=== PATIENT | female | born 1940 | race African-American/Black ===

== ENCOUNTER 2019-12-21 04:10 | Inpatient (IN) | payer OTHER ==
[~2019-12-21] VITALS: Ht 167.6 cm; Wt 121.1 kg
[2019-12-21] VITALS (32 sets, daily range): BP systolic 74–140; BP diastolic 43–80
[~2019-12-21 04:10] MED LIST: ACETAMINOPHEN325 M1 PO; ALPHAGAN P10 ML; AMLODIPINE BESY10 MG PO; ASPIRIN EC81 M1 PO; CARVEDILOL6.25 MG PO; CEPASTAT CHERR18 TA2 PO; COSOPT EYE DROPS5 ML OPHTHALMIC; DIOVAN 80 MG TA80 M1 PO; DIOVAN320 MG PO; FML 0.1% 10ML10 M1 OP; HYDRALAZINE 2525 M1 PO; JANUMET 50-5001 EACH PO; JANUMET XR 50-1 EACH PO; JANUVIA100 MG PO; LEVAQUIN 500 M500 M2 PO; LOTEMAX5 ML; MOM PO; PANTOPRAZOLE SO40 M1 PO; PREDNISONE 10 M10 M1 PO; ZOCOR 20 MG TAB20 M1 PO
[2019-12-21 05:17] LABS: HEMATOCRIT 30.8 % (37.0-47.0); HEMOGLOBIN 9.5 gm/dL (12.0-15.0); MCH 33.3 pg (26.0-34.0); MCHC 30.9 g/dL (28.0-37.0); MCV 107.7 fL (80.0-100.0); PLATELET COUNT 145 thou/uL (150-400); RBC 2.86 mil/uL (4.20-5.00); RDW 14.9 % (10.5-14.5); WBC 23.5 thou/uL (4.0-11.0)
[2019-12-21 05:18] LABS: CALCIUM 8.8 mg/dL (8.5-10.1); CREATININE 2.2 mg/dL (0.6-1.0); POTASSIUM 4.7 mmol/L (3.5-5.1)
[2019-12-21 05:26] LABS: ALBUMIN 3.4 g/dL (3.4-5.0); DIRECT BILIRUBIN 0.3 mg/dL (<0.1-0.2); TOTAL BILIRUBIN 0.8 mg/dL (0.2-1.0); TOTAL PROTEIN 6.5 g/dL (6.4-8.2)
[2019-12-21 05:26] LABS: URINE BILIRUBIN NEGATIVE (Negative); URINE BLOOD NEGATIVE (Negative); URINE CLARITY CLEAR; URINE COLOR YELLOW; URINE GLUCOSE-RANDOM* 1+ (Negative); URINE KETONES NEGATIVE (Negative); URINE LEUKOCYTES-REFLEX NEGATIVE (Negative); URINE NITRITE-REFLEX NEGATIVE (Negative); URINE PROTEIN (DIPSTICK) NEGATIVE (Negative); URINE SPECIFIC GRAVITY 1.015 (1.005-1.035); URINE UROBILINOGEN 0.2 E.U./dl (0.2-1.0)
[2019-12-21] MEDS ORDERED: DOXYCYCLINE 10100 MG PO (06:11)
[2019-12-21 06:35] LABS: ABSOLUTE NEUTROPHILS 22.8 thou/uL (1.4-8.2)
[2019-12-21 06:36] LABS: ANISOCYTOSIS 1+; PLATELET ESTIMATE DECREASED; POIKILOCYTOSIS 1+
[2019-12-21 08:18] LABS: CHOLESTEROL 136 mg/dL (<200); HDL CHOLESTEROL 29 mg/dL (>40); LDL CHOLESTEROL 82 mg/dL (<100); TC:HDL 4.7 Ratio (Not establshd); TRIGLYCERIDE 125 mg/dL (<150); VLDL 25 mg/dL (<40)
[2019-12-21 08:20] LABS: SERUM ASSESSMENT Clear
--- NOTE | 2019-12-21 11:22 | NUR ---
PATIENT ADMITTED 1025 FROM ER TO ICU. PATIENT FOUND BY FAMILY MEMBER EARLIER THIS MORNING ON THE FLOOR. PATIENT TAKE TO ER FOR EVALUATION. PATIENT MONITORED IN ED NO MEDICATIONS GIVEN. PATIENT SENT TO ICU FOR LOW BP AND INCRASED OXYGEN DEMANDS. PATIENT COVID RULE OUT. PATIENT COMES TO FLOOR 3L NC.
--- NOTE | 2019-12-21 12:46 | NUR ---
VACULAR ACCESS CONSULTED FOR PICC LINE. PT IS UNABLE TO LAY FLAT. PT'S LABS,MEDS,HX,ORDER AND CONSENT VERIFIED. DISCUSSED BENEFITS AND RISK OF PICC WITH PT, VERBALIZED UNDERSTANDING. PT GAVE VERBAL CONSENT FOR PICC UNABLE TO SIGN DUE TO DYSPNEA. HOB 30 DEGREES FOR PICC PLACEMENT. 5FR TL POWER PICC TRIMMED TO 45CM INSERTED TO 1CM EXTERNAL. STAT CXR ORDERED. PT TOLERATED WELL.
[2019-12-21 13:45] LABS: % SATURATION 4 % (20-39); IRON 10 ug/dL (50-170); TIBC 228 ug/dL (250-450)
--- NOTE | 2019-12-21 14:01 | NUR ---
PT'S DTR MADAI XIONG CALLED IN,UPDATED.EXPLAINED NO VISITING POLICY FOR CO VID & R/O COVID PT'S. SHE STATED SHE UNDERSTOOD.--VW
[2019-12-21] MEDS ORDERED: ALLOPURINOL 10100 M3 PO (14:04)
[2019-12-21] MEDS ORDERED: ELIQUIS5 MG PO (14:05)
[2019-12-21] MEDS ORDERED: [UNRECOGNIZED DRUG - OTHER] OPHTHALMIC (14:05)
[2019-12-21] MEDS ORDERED: REFRESH DIGITA1 EACH OPHTHALMIC (14:06)
[2019-12-21] MEDS ORDERED: CALCIUM + D3 E1 EACH PO (14:06)
[2019-12-21] MEDS ORDERED: SIMBRINZA 1%-0.28 ML OPHTHALMIC (14:06)
[2019-12-21] MEDS ORDERED: DAPSONE25 MG PO (14:07)
[2019-12-21] MEDS ORDERED: DELSYM COU30 MG/5 M1 PO (14:07)
[2019-12-21] MEDS ORDERED: COLACE100 MG PO (14:07)
[2019-12-21] MEDS ORDERED: HYDRALAZINE 2525 MG PO (14:07)
[2019-12-21] MEDS ORDERED: HUMALOG100 UNIT/1 SUBQ ×2 (14:08)
[2019-12-21] MEDS ORDERED: LEVEMIR100 UNIT/2 SUBQ (14:09)
[2019-12-21] MEDS ORDERED: IPRAT-ALBUT 0.5-3 ML INH (14:09)
[2019-12-21] MEDS ORDERED: TOPROL XL50 MG PO (14:10)
[2019-12-21] MEDS ORDERED: LUMIGAN2.5 M1 OPHTHALMIC (14:10)
[2019-12-21] MEDS ORDERED: NYSTATIN100000 UNI SW&SWALLOW (14:10)
[2019-12-21] MEDS ORDERED: PROTONIX40 M2 PO (14:10)
[2019-12-21] MEDS ORDERED: PROAIR HFA8.5 GM INH (14:11)
[2019-12-21] MEDS ORDERED: PREDNISONE 5 MG5 M1 PO (14:11)
[2019-12-21] MEDS ORDERED: RHOPRESSA2.5 ML OPHTHALMIC (14:11)
[2019-12-21] MEDS ORDERED: TORSEMIDE20 MG PO (14:12)
[2019-12-21] MEDS ORDERED: AAA-MED REC COMPLETE (14:12)
--- NOTE | 2019-12-21 14:16 | NUR ---
CXR STATES PICC IN MID ATRIUM, PULLED BACK 3 MORE CM TOTAL OF 4 CM 2ND CXR CONFIRMS PICC AT CAJ. PICC RELEASED FOR IMMEDIATE USE TO SOLANGE BOWMAN PER PROTOCOL
--- NOTE | 2019-12-21 15:36 | EKG ---
[facility] [place] [address] ELECTROCARDIOGRAM REPORT Name: JAMES RAI Room #: 238-P ADM IN M.R.#: [id number] Admission: 12/21/19 Attend Phys: Jerome Hobbs MD Discharge: Date of : 44 Report #: [id number] THIS REPORT FOR: cc: FLAVIO RICCI MD Physician not on staff Omari Bo MD [facility] ~ THIS REPORT FOR: //name// [facility] Test Date: 2019-12-21 Test Time: 13:37:06 Pat Name: JAMES RAI Department: Room: [facility] Gender: F Chemist Enzymes: GRABIEL : 1940 Requested By: Elly Leavitt Order Number: [id number] MD: Omari Bo Measurements Intervals [place] Rate: 75 P: 29 DC: 152 QRS: -46 QRSD: 99 T: -89 QT: 416 QTc: 465 Interpretive Statements Sinus rhythm Nonspecific repol abnormality, diffuse leads Compared to ECG 04/07/2013 22:29:08 Early repolarization now present Sinus tachycardia no longer present Poor R-wave progression no longer present Electronically Signed On 12-21-2019 15:36:50 CDT by Omari Bo [email or web address] <ELECTRONICALLY SIGNED> By: Omari Bo MD, FACC 12/21/19 1536 1337 1337 Omari Bo MD, FACC /EPI
[2019-12-22] VITALS (87 sets, daily range): BP systolic 63–151; BP diastolic 12–89
--- NOTE | 2019-12-22 03:37 | NUR ---
PATIENT SLEEPING, NOTED TO BE MOUTH BREATHING, SATS 86%, INCREASED O2 5L NC @ 2015, SCDs PLACED, VSS, AFEBRILE,AND DENIES PAIN. 0120-BREATH SOUNDS VERY WET AND PRODUCTIVE AFTER REPOSIONING. MARV BLANC NOTIFIED. NEW ORDERS NTS X1, PRN BREATHING TX AND BIPAP ORDERS GIVEN AND IMPLEMENTED. SPUTUM CULTURE COLLECTED
[2019-12-22 06:03] LABS: HEMATOCRIT 25.6 % (37.0-47.0); MCH 33.4 pg (26.0-34.0); MCV 107.7 fL (80.0-100.0); PLATELET COUNT 117 thou/uL (150-400); RBC 2.38 mil/uL (4.20-5.00); RDW 15.9 % (10.5-14.5); WBC 26.2 thou/uL (4.0-11.0)
[2019-12-22 06:30] LABS: ALBUMIN 2.7 g/dL (3.4-5.0); CALCIUM 7.2 mg/dL (8.5-10.1); CREATININE 2.7 mg/dL (0.6-1.0); MAGNESIUM 1.6 mg/dL (1.8-2.4); POTASSIUM 4.5 mmol/L (3.5-5.1); TOTAL BILIRUBIN 0.4 mg/dL (0.2-1.0); TOTAL PROTEIN 5.6 g/dL (6.4-8.2)
[2019-12-22 07:08] LABS: GLYCOHEMOGLOBIN (HGB A1C) 4.3 % (4.8-5.6)
--- NOTE | 2019-12-22 08:57 | NUR ---
DAUGHTER MADAI XIONG CALLED AND SPOKE TO RN FOR PT UPDATE. MADAI WOULD LIKE HER CELL PHONE NUMBER ADDED, - [phone].
[2019-12-22 11:00] LABS: ABSOLUTE NEUTROPHILS 22.8 thou/uL (1.4-8.2); ANISOCYTOSIS SLIGHT; MACROCYTES 2+; PLATELET ESTIMATE NORMAL
--- NOTE | 2019-12-22 16:03 | NUR ---
PT AT BEGINNING OF SHIFT WAS IN ENHANCED PRECAUTIONS FOR PENDING COVID RESULTS. PT ALREADY HAD 1 NEGATIVE COVID RESULT AND RN SWABBED PT THIS AM FOR SECOND COVID-19 TEST. RESULTS JUST CAME BACK COVID-19 NEGATIVE FOR THE SECOND SWAB. SHALE PLANER OPERATOR HELPER SPOKE WITH THIS RN AND STATED TO TAKE HER OUT OF ISOLATION PRECAUTIONS AND TO REQUEST A TRANSFER OUT OF POD 1 IN ICU. PULMONARY PHYSICIAN ON UNIT DURING THIS TIME AND STATES THAT PT CAN BE TRANSFERRED OUT OF ICU TO CCU. TRANSFER ORDER PLACED AND CLINICAL TRIAL DATA MANAGER NOTIFIED.
[2019-12-23] VITALS (79 sets, daily range): BP systolic 55–157; BP diastolic 26–74
[2019-12-23 02:48] LABS: BE(vivo) -6.4 mmol/L (-2 to +3); PCO2 95.6 mmHg (35.0-45.0); PO2 98.5 mmHg (80.0-100.0); sO2 93.4 % (92.0-98.0)
[2019-12-23 02:51] LABS: pH 7.036 (7.360-7.450)
--- NOTE | 2019-12-23 02:59 | NUR ---
POULTRY BUYER ACTIVATED FOR DECREASED LOC. PT RECENTLY GIVEN ATIVAN. ROMAZICON GIVEN WITH IMMEDIATE RESPONSE. PT MOVING LIMBS AND RESPONDING APPROPRIATELY TO VOICE. BIPAP SETTINGS ADJUSTED AFTER ABG REVIEW. SPINNER IRON AND UPDATED ON PT STATUS. PT TO REMAIN ON THE UNIT.
[2019-12-23 03:58] LABS: BE(vivo) -7.1 mmol/L (-2 to +3); HCO3 24.1 mmol/L (22.0-26.0); PO2 78.4 mmHg (80.0-100.0); sO2 88.1 % (92.0-98.0)
[2019-12-23 03:59] LABS: PCO2 90.4 mmHg (35.0-45.0); pH 7.043 (7.360-7.450)
[2019-12-23 04:45] LABS: BE(vivo) -7.2 mmol/L (-2 to +3); HCO3 23.7 mmol/L (22.0-26.0); PO2 155.8 mmHg (80.0-100.0)
[2019-12-23 04:46] LABS: PCO2 86.5 mmHg (35.0-45.0); pH 7.056 (7.360-7.450)
[2019-12-23 05:56] LABS: HEMOGLOBIN 8.6 gm/dL (12.0-15.0); MCH 32.7 pg (26.0-34.0); MCHC 28.6 g/dL (28.0-37.0); PLATELET COUNT 134 thou/uL (150-400); RBC 2.63 mil/uL (4.20-5.00); RDW 16.7 % (10.5-14.5); WBC 29.5 thou/uL (4.0-11.0)
[2019-12-23 06:10] LABS: ALBUMIN 2.7 g/dL (3.4-5.0); CALCIUM 7.9 mg/dL (8.5-10.1); CREATININE 2.8 mg/dL (0.6-1.0); TOTAL BILIRUBIN 0.3 mg/dL (0.2-1.0)
[2019-12-23 06:12] LABS: POTASSIUM 6.3 mmol/L (3.5-5.1)
[2019-12-23 06:14] LABS: MCV 114.1 fL (80.0-100.0)
[2019-12-23 06:50] LABS: BE(vivo) -6.5 mmol/L (-2 to +3); HCO3 23.1 mmol/L (22.0-26.0); PCO2 72.5 mmHg (35.0-45.0); PO2 112.9 mmHg (80.0-100.0); pH 7.122 (7.360-7.450); sO2 96.4 % (92.0-98.0)
[2019-12-23 07:33] LABS: ABSOLUTE NEUTROPHILS 27.4 thou/uL (1.4-8.2)
[2019-12-23 07:35] LABS: ANISOCYTOSIS 1+; PLATELET ESTIMATE SLIGHTLY DECREASED
[2019-12-23 07:36] LABS: POIKILOCYTOSIS 1+
[2019-12-23 07:39] LABS: MACROCYTES 2+
--- NOTE | 2019-12-23 08:18 | NUR ---
PT WAS TRANFERRED FROM ICU TO ROOM 204 AROUND MIDNIGHT, PT IS NON VERBAL AND NONRESPONSIVE, ASSESSMENTS CHARTED, ST ON THE MONITOR, HR IN THE 120S, PT ON BIPAP, O2SATS STABLE, DUMP TRUCK OPERATOR CALLED, VSS WAS STABLE, BS WAS 151, ORDERS RECEIVED AND GIVEN PER MAY, BLOOD GAS OBTAINED, CRITICAL RESULTS CALLED TO DR. KIM, ORDERS RECEIVED AND REPEAT BLOOD GAS WAS DONE LATER WITH NO MUCH IMPROVEMENT, DR KIM UPDATED; DR KIM AT BEDSIDE ASSESSING PT, ORDERS RECEIVED AND GIVEN PER MAY, REPEAT GASES DONE; CRITICAL BLOOD GAS CALLED TO WASH AND GREASER, NO ORDERS RECEIVED, CRITICAL POTASSIUM OF 6.3 CALLED TO OUTSEWER, ORDERS RECEIVED AND TREATED PER MAY; WILL RECHECK IN AN HR; PT IS RESPONDING TO PAIN, PASSED ON REPORT TO DAY NURSE
--- NOTE | 2019-12-23 09:08 | NUR ---
PATIENT ARRIVED TO UNIT AROUND 0830 WITH CCU NURSE AND RT AT BEDSIDE. PATIENT ON BIPAP. PATIENT SETTLEFD INTO BED, BY CCU RN, MARKETING ANALYTICS SPECIALIST AND RT. BEDSIDE REPORT OBTAINED FROM CCU NURSE. PATIENT MINIMALLY RESPONSIVE. ABLE TO SQUEEZE HANDS ON DEMAND. DR[facility], 40MG OF ETOMIDATE AND 10 MG OF [address]EF[address] PREPARED. DR[address] KIM PREPARING TO INTUBATE. PATIENT INTUBATED AT 0900. RT AND RN AT BEDSIDE. PATIENT GETTING HYPOTENSIBE 500 CC BOLUS INTITATED.
--- NOTE | 2019-12-23 09:52 | NUR ---
OT EVAL AND TREAT ORDERS RECEIVED, CHART REVIEWED, PATIENT FROM ICU TO CCU, MINIMAL RESPONSE, DECLINE IN RESPIRATORY STATUS, INTUBATED, TRANSFER BACK TO ICU. OT TO HOLD AT THIS TIME, WILL NEED NEW ORDERS TO RESUME THERAPY WHEN APPROPRIATE
[2019-12-23 11:12] LABS: HCO3 23.1 mmol/L (22.0-26.0); PCO2 53.5 mmHg (35.0-45.0); PO2 199.3 mmHg (80.0-100.0); pH 7.253 (7.360-7.450); sO2 99.2 % (92.0-98.0)
--- NOTE | 2019-12-23 11:52 | NUR ---
PT TX TO ICU FROM CCU PRIOR TO INITIATION OF THERAPY SERVICES. REQUEST NEW P.T. ORDERS ONCE MEDICAL STATUS STABILIZES.
--- NOTE | 2019-12-23 12:50 | 2DMMODE ---
[facility] [address] [place] [address] 2 D/M-MODE ECHOCARDIOGRAM Name: JAMES RAI Room #: 251-P ADM IN M.R.#: [id number] Admission: 12/21/19 Attend Phys: Parth Garza Discharge: Date of : 44 Report #: [id number] THIS REPORT FOR: cc: FLAVIO RICCI MD Physician not on staff Omari Bo MD [facility] ~ APPROVED REPORT Study performed: 12/23/2019 12:05:16 EXAM: Comprehensive 2D, Doppler, and color-flow Echocardiogram Patient Location: ICU Room #: 204 Status: routine BSA: 2.00 HR: 78 bpm BP: 88/49 mmHg Rhythm: NSR Other Information Study Quality: Good Technically limited study due to no mobility. Flat on back on vent. Indications CHF. Respiratory failure, question fluid overload. Hx: Cardiomyopathy, PE, DM, HTN, sarcoidosis. 2D Dimensions RVDd: 38.65 mm IVSd: 12.00 (7-11mm) LVOT Diam: 19.08 (18-24mm) LVDd: 52.00 mm PWd: 10.26 (7-11mm) Ascending Ao: 36.03 (22-36mm) LVDs: 43.07 (25-40mm) Aortic Root: 31.34 mm Volumes Left Atrial Volume (Systole) Single Plane 4CH: 48.98 mL Single Plane 2CH: 67.89 mL LA ESV Index: 31.00 mL/m2 Aortic Valve AoV Peak Bang.: 1.74 m/s AO Peak Gr.: 12.13 mmHg LVOT Max P.83 mmHg [facility] [address] [place] [address] 2 D/M-MODE ECHOCARDIOGRAM Name: RAIJAMES Room #: 251-P [facility] IN ..#: [id number] Admission: 12/21/19 Attend Phys: Parth Thomas Discharge: Date of : 44 Report #: [id number] LVOT Max V: 1.31 m/s ALYSON Vmax: 2.14 cm2 Mitral Valve E/A Ratio: 0.6 MV Decel. Time: 157.16 ms MV E Max Bang.: 0.72 m/s MV A Bang.: 1.13 m/s MV PHT: 45.57 ms IVRT: 107.27 ms Pulmonary Valve PV Peak Bang.: 0.95 m/s PV Peak Gr.: 3.61 mmHg Tricuspid Valve TR Peak Bang.: 3.51 m/s RAP Estimate: 15.00 mmHg TR Peak Gr.: 49.26 mmHg Left Ventricle The left ventricle is normal size. Regional wall motion abnormalities are noted. Mild septal hypertrophy is present. Left ventricular systolic function is moderately decreased. LVEF is 40%. Mild diastolic dysfunction is present (impaired relaxation pattern). Right Ventricle The right ventricle is normal size. The right ventricular systolic function is normal. Atria The left atrium size is normal. Right atrium is mildly dilated. Aortic Valve The aortic valve is normal in structure. No aortic regurgitation is present. There is no aortic valvular stenosis. Mitral Valve The mitral valve is normal in structure. Mild mitral annular calcification. Trace mitral regurgitation. Tricuspid Valve The tricuspid valve is normal in structure. Moderate tricuspid regurgitation. Estimated PAP is 60-65mmHg. Pulmonic Valve [facility] [address] [place] [address] 2 D/M-MODE ECHOCARDIOGRAM Name: KAY RAIVA Room #: 251-[place] IN M.R.#: [id number] Admission: 12/21/19 Attend Phys: Parth Thomas Discharge: Date of : 44 Report #: [id number] The pulmonary valve is normal in structure. Trace pulmonic regurgitation. Great Vessels The aortic root is normal in size. The ascending aorta is normal in size. IVC is dilated and collapses <50% with inspiration. Pericardium There is no pericardial effusion. 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
--- NOTE | 2019-12-23 15:25 | NUR ---
chart review, unable to visit with meera rt on vent. cm spoke with malik gr via phone call she report her mom lives with her 32yr old grand son. 3 steps into the home and 5 steps with handrail up to bedroom. she no longer drives, daughter set up medication in pill box, meera does her own insulin shots via pen, she will fix her own breakfast but rest of cooking is provided by family. independent with adl's. hh in past, not sure who it was with. no rehab in the past per malik raphael. will cont following as needed for dc needs.
--- NOTE | 2019-12-23 19:38 | NUR ---
RECEIVED PT'S CARE AROUND 0745; PT. ON BED; RESPONSIVE TO PAIN; EYES RED; NOTICED SOME DISCHARGED; PULSES 03/17; NO ANSWER BACK WHEN CALL NAMED; DR. KIM ROUNDING ON PT. DURING SHIFT CHANGED; ORDERS RECEIVED; WATER MECHANIC NOTIFIED ABOUT TRASNFER TO ICU; AROUND 08 WATER MECHANIC . "I NEED HIM TO BE MOVE ASAO"; SHOOTER'S HELPER [facility] & "LET ME CALL RT"; RT NOTIFIED; PT. TRANSFER TO ICU; REPORT GIVEN AT BED SIDE; DAUGHTER UPDATED ABOUT 0900; UNDERSTANDING;
[2019-12-24] VITALS (34 sets, daily range): BP systolic 101–143; BP diastolic 41–67
--- NOTE | 2019-12-24 | NUR ---
GAVE PATIENT REPORT TO SY BOWMAN. PATIENT CARE RELINQUISHED.
--- NOTE | 2019-12-24 05:34 | NUR ---
ASSESSMENTS CHARTED, MEDS CHARTED GIVEN. PATIENT VENTILATED DURNING SHIFT. UNABLE TO SPEAK. MAINTENANCE MEDS GIVEN DURNING SHIFT. BILATERAL WRIST RESTRAINTS CHARTED. NPO AND YARELI. GAVE REPORT TO AMRITA.
--- NOTE | 2019-12-24 05:55 | NUR ---
RECEIVED REPORT FROM SY BOWMAN. ASSUMED PATIENT CARE AT THIS TIME.
[2019-12-24 09:15] LABS: CALCIUM 7.6 mg/dL (8.5-10.1); CREATININE 2.5 mg/dL (0.6-1.0)
--- NOTE | 2019-12-24 09:56 | NUR ---
Noted ordered for 1/2 strength formula-cannot dilute as tube feed is in a closed system container. Not a recommended practice. Recommend vital high protein at full strength 55ml/hr. Defer fluid needs to physician to correct pts hypernatremia.
--- NOTE | 2019-12-24 15:44 | NUR ---
ASSUMED CARE @ 0700 12/24/19, PT ASSESSMENTS AND VSS COMPLETE PER ICU PROTOCOL. DR HAMPTON PAGED FOR LOW UO BELOW 20ML/HR @ [address], [address] NEVAREZ ROUNDS @ 1110, RN INFORMS HIM ABOUT LOW UO, MORE ORDERS RECIEVED AND EXECUTED. UO DID IMPROVE 30ML/HR AFTER THESE INTERVENTIONS. TUBE FEEDS ORDERS RECOMENDATIONS ACCEPTED BY DR NEVAREZ, ORDERS PLACED. @ 1440 PT HAS A [facility] BEAT [facility] FORESTRY ADVISER PAGED, ORDERS REICEVED, RN CALLS BACK @ 1517 TO REPORT RESULTS, NO NEW ORDERS RECIEVED. DR SANTOYO @ BEDSIDE @ 1530 NO ORDERS RECIEVED. DTR MADAI XIONG CALLED @ 0815, CODE VERIFIED, UPDATE GIVEN. DTR AT BEDSIDE FOR 0NE HOUR DURING THE SHIFT.
--- NOTE | 2019-12-24 16:18 | NUR ---
chart review. pt remains intubated with nutritional support. no anticipated dc over the weekend. will cont following as needed for dc needs.
[2019-12-25] VITALS (47 sets, daily range): BP systolic 101–136; BP diastolic 43–68
--- NOTE | 2019-12-25 04:30 | NUR ---
ASSUMED PT CARE AT 1900. VSS. PT INTUBATED AND SEDATED ON PROPOFOL AT 15MCG. PT AROUSABLE AND FOLLOWS COMANDS WITH AND WITHOUT SEDATION VACATION. PT ATTEMPTED TO WRITE TO COMMUNICATE NEED BUT WAS TOO WEAK. U/O OF 20-30MLS/HR. PT ON IVF AT 75. PT IS STABLE, WILL CONTINUE TO MONITOR.
[2019-12-25 05:54] LABS: CALCIUM 7.7 mg/dL (8.5-10.1); CREATININE 2.4 mg/dL (0.6-1.0); POTASSIUM 3.6 mmol/L (3.5-5.1)
[2019-12-25 06:11] LABS: HEMATOCRIT 22.7 % (37.0-47.0); RBC 2.13 mil/uL (4.20-5.00); RDW 14.9 % (10.5-14.5); WBC 14.1 thou/uL (4.0-11.0)
[2019-12-25 06:17] LABS: MCV 106.2 fL (80.0-100.0)
--- NOTE | 2019-12-25 16:13 | NUR ---
ON THE VENT, LIGHTLY SEDATED. VITALS STABLE AND NO DISTRESS NOTED. AWAKENS BUT GETS ANXIOUS AND STARTS TAPPING ON THE SIDERAILS. TOLERATING TUBEFEEDING PER OGT. FAMILY (DAUGHTERS UPDATED OVER THE PHONE). DR. SANTOYO NOTIFIED NOTIFIED OF CRITICAL VANCO TROUGH AND DOSE HELD. WILL CONTINUE WITH POC.
[2019-12-26] VITALS (48 sets, daily range): BP systolic 91–152; BP diastolic 41–71
[2019-12-26 05:04] LABS: HEMATOCRIT 23.7 % (37.0-47.0); HEMOGLOBIN 7.2 gm/dL (12.0-15.0); MCH 32.5 pg (26.0-34.0); MCHC 30.5 g/dL (28.0-37.0); MCV 106.8 fL (80.0-100.0); RBC 2.22 mil/uL (4.20-5.00); RDW 14.9 % (10.5-14.5); WBC 11.3 thou/uL (4.0-11.0)
[2019-12-26 05:07] LABS: CALCIUM 7.7 mg/dL (8.5-10.1); POTASSIUM 3.9 mmol/L (3.5-5.1)
--- NOTE | 2019-12-26 05:45 | NUR ---
0545 - RT BANDAR - CAME TO DRAW PTS MORNING ABG'S. ABG RESULTS SHOWED MULTIPLE CRITICAL VALUES THAT WERE NOT REPORTED TO THIS RN. ABG RESULTS WERE TIMED IN THE COMPUTER FOR 0400, WHEN INFACT THEY WERE DRAWN AT 0545. THIS RN SPOKE WITH RT ABOUT THE POSSIBILIY THAT THE SAMPLE IS VENOUS. THIS RN HAS REQUESTED THAT ABG'S BE REDRAWN BEFORE CRITICAL RESULTS ARE COMMUNICATED TO DR. NEVAREZ.
[2019-12-26 05:49] LABS: BE(vivo) -3.8 mmol/L (-2 to +3); HCO3 22.2 mmol/L (22.0-26.0); PCO2 44.8 mmHg (35.0-45.0)
[2019-12-26 05:50] LABS: PO2 37.4 mmHg (80.0-100.0); pH 7.313 (7.360-7.450)
[2019-12-26 13:53] LABS: HCO3 24.9 mmol/L (22.0-26.0); PCO2 61.2 mmHg (35.0-45.0); PO2 72.7 mmHg (80.0-100.0); pH 7.228 (7.360-7.450); sO2 91.3 % (92.0-98.0)
--- NOTE | 2019-12-26 16:07 | NUR ---
ASSUMED CARE @ 0700 12/26/19, PT ASSESSMENTS AND VSS COMPLETE PER ICU PROTOCOL. DR NEVAREZ HERE TO ROUND, ORDERS RECIEVED, SEDATION OFF 1200, CPAP TRIAL 1239, ABG @ 1352, RESULTS CALLED TO DR NEVAREZ, PT SWITCHED BACK TO AC CONTROL. DT @ BEDSIDE TODAY, UPDATE GIVEN, DTR CONCERNED ABOUT PT'S EYE DROPS, ORDERS PLACED BY DR NEVAREZ, HOSPITAL DOES NOT CARRY ONE OF THE EYE DROPS RHOPRESSA AND SO PT'S DTR VOLUNTEERED TO BRING A BRAND NEW BOTTLE IN, BUT IS REQUESTING THAT PT TAKES IT HOME WHEN DISCHARGED. ORDER PLACED IN PYXIS TO KEEP TRACK OF THE MEDICATION.
[2019-12-27] VITALS (37 sets, daily range): BP systolic 107–170; BP diastolic 7–77
[2019-12-27 06:01] LABS: CALCIUM 7.9 mg/dL (8.5-10.1); CREATININE 1.7 mg/dL (0.6-1.0); HEMATOCRIT 25.5 % (37.0-47.0); HEMOGLOBIN 7.8 gm/dL (12.0-15.0); MCHC 30.7 g/dL (28.0-37.0); MCV 107.6 fL (80.0-100.0); PLATELET COUNT 104 thou/uL (150-400); POTASSIUM 4.4 mmol/L (3.5-5.1); RBC 2.37 mil/uL (4.20-5.00); RDW 15.3 % (10.5-14.5)
--- NOTE | 2019-12-27 06:35 | NUR ---
ASSUMED OT CARE AT 1900. VSS. PT FOLLOWS COMMANDS WITH AND WITHOUT SEDATION VACATION. PT STAYED STABLE ALL NOC, NO NEW CHANGES, ASSESSMENTS CHARTED.
--- NOTE | 2019-12-27 07:21 | EKG ---
[facility] [address] [place] [address] ELECTROCARDIOGRAM REPORT Name: JAMES RAI Room #: [facility]- ADM IN M.R.#: [id number] Admission: 12/21/19 Attend Phys: Parth Garza Discharge: Date of : 44 Report #: [id number] THIS REPORT FOR: cc: FLAVIO RICCI MD Physician not on staff Bimal Downey MD [facility] ~ THIS REPORT FOR: //name// [facility] Test Date: 2019-12-24 Test Time: 14:57:07 Pat Name: JAMES RAI Department: Room: [facility] Gender: F Dialysis Chief Equipment Technician: GRABIEL : 1940 Requested By: Mariam Mustafa Order Number: [id number] MD: Bimal Downey Measurements Intervals [place] Rate: 72 P: 71 NE: 132 QRS: -42 QRSD: 105 T: 259 QT: 450 QTc: 493 Interpretive Statements Sinus rhythm Left axis deviation Poor R wave progression T abnormalities, inferior leads Compared to ECG 12/21/2019 13:37:06 No significant change was found Electronically Signed On 12-27-2019 7:20:58 CDT by Bimal Downey [email or web address] <ELECTRONICALLY SIGNED> By: Bimal Downey MD, FAC 12/27/19 0720 1457 1457 Bimal Downey MD, [facility] /EPI
[2019-12-27 08:55] LABS: ABSOLUTE NEUTROPHILS 11.4 thou/uL (1.4-8.2); ANISOCYTOSIS 1+; MACROCYTES 2+; NUCLEATED RBCS 1 /100WBC; PLATELET ESTIMATE NORMAL
[2019-12-27 10:53] LABS: BE(vivo) -0.7 mmol/L (-2 to +3); HCO3 24.8 mmol/L (22.0-26.0); PO2 90.1 mmHg (80.0-100.0); pH 7.359 (7.360-7.450); sO2 96.5 % (92.0-98.0)
--- NOTE | 2019-12-27 16:00 | NUR ---
chart review. pt remains on vent with tf nutritional support. weaning trails. cm spoke with daughter caitlyn, no concerns or needs voiced. will cont following as needed for dc needs.
--- NOTE | 2019-12-27 18:42 | NUR ---
ASSUMED CARE OF PT AT 0700, PT IS A GCS OF 16, SHE DENIES ANY DISCOMFOR AT THIS TIME. PT GOT EXTUBATED AT 122O AND SHE IS GUILLE IT WELL. VSS, PT HAS BEEN AFIBRILE. PT RESTING IN BED WITH EYES CLOSED. FAMILY HAS BEEN UPDATED.
[2019-12-28] VITALS (26 sets, daily range): BP systolic 117–166; BP diastolic 40–72
[2019-12-28 05:48] LABS: CALCIUM 8.5 mg/dL (8.5-10.1); CREATININE 1.7 mg/dL (0.6-1.0); POTASSIUM 4.1 mmol/L (3.5-5.1)
--- NOTE | 2019-12-28 06:00 | NUR ---
A VERY DELIGHTLY LITTLE LADY. AWAKE AND ALERT. NEURO INTACT. O2 SAT 98 % ON 2 L NC LUNGS SLIGHTLY COARSE BILAT. GOOD COUGH EFFORT. 1000 CC UO THIS SHIFT. FMS WITH A SMALL AMT BROWN LIQUID STOOL.. BATHED. PROGRESSING TOWARD GOALS. WILL CONT TO MONITOR.
--- NOTE | 2019-12-28 19:52 | NUR ---
0930- IN. PT VERY DROWSY BUT AROUSES EASILY & IS APPROP & CONVERSANT.--VW 1230- IN EARLIER.--VW 1600-DTR IN FOR SHORT VISIT.--VW 1900-CARE TURNED OVER TO ONCOMING RN.--VW
[2019-12-29] VITALS (21 sets, daily range): BP systolic 109–147; BP diastolic 34–59
[2019-12-29 06:08] LABS: HEMATOCRIT 26.3 % (37.0-47.0); HEMOGLOBIN 8.1 gm/dL (12.0-15.0); MCH 33.2 pg (26.0-34.0); MCHC 30.8 g/dL (28.0-37.0); MCV 107.9 fL (80.0-100.0); RBC 2.44 mil/uL (4.20-5.00); RDW 15.1 % (10.5-14.5); WBC 15.4 thou/uL (4.0-11.0)
[2019-12-29 06:33] LABS: CALCIUM 8.6 mg/dL (8.5-10.1); CREATININE 1.6 mg/dL (0.6-1.0); POTASSIUM 4.9 mmol/L (3.5-5.1)
--- NOTE | 2019-12-29 18:28 | NUR ---
patient seen by speech therapy today. patient did no pass swallow evaluation. patient CCU status. continues on 3-4L NC. Patient 2-3L NC at baseline. spoke with family Eloisa Pruett about patient update.
[2019-12-30] VITALS (13 sets, daily range): BP systolic 97–164; BP diastolic 34–78
--- NOTE | 2019-12-30 11:50 | NUR ---
1000-LONG D/W DTR OVER PHONE RE:MOM'S CONDITION,WEAKNESS,SOB,ETC. DISCUSSED PROGRESSION OF SARCOIDOSIS.MOM DOES NOT WANT TO MOVE,STATES I HURT WHEN YOU TOUCH ME.DENIES PAIN WHEN LEFT ALONE.STILL SOB.VERY WEAK.DTR WILL BE IN TO SEE PT.--VW
[2019-12-31] VITALS (13 sets, daily range): BP systolic 118–173; BP diastolic 40–103
[2019-12-31 06:11] LABS: HEMATOCRIT 29.1 % (37.0-47.0); HEMOGLOBIN 8.9 gm/dL (12.0-15.0); MCH 33.1 pg (26.0-34.0); MCHC 30.7 g/dL (28.0-37.0); MCV 107.6 fL (80.0-100.0); RBC 2.7 mil/uL (4.20-5.00); RDW 15.8 % (10.5-14.5)
[2019-12-31 06:26] LABS: CALCIUM 8.9 mg/dL (8.5-10.1); CREATININE 1.3 mg/dL (0.6-1.0); POTASSIUM 5.2 mmol/L (3.5-5.1)
--- NOTE | 2019-12-31 06:28 | NUR ---
ASSUMED PT CARE AT 1900. VSS, PT A&0X4. NO ISSUES OVERNIGHT, JUST REMAINS LETHARGIC. WHEN PT TAKES OFF HER OWN O2, SHE QUICKLY DESATS TO THE 60s AND TAKES A MOMENT TO RECOVER, OTHERWISE, IS STABLE, WILL CONINUE TO MONITOR
--- NOTE | 2019-12-31 08:02 | NUR ---
Patient minimally arousable upon assessment. Patient does respond/moan to pain. RR 30, O2 sat 97%, HR 101. Patient is moving little air. RT here to do breathing treatment and spoke to Dr. Morejon. Getting ABG at this time.
[2019-12-31 08:15] LABS: BE(vivo) 4.2 mmol/L (-2 to +3); HCO3 36.1 mmol/L (22.0-26.0); PO2 87.6 mmHg (80.0-100.0); sO2 92.1 % (92.0-98.0)
[2019-12-31 08:16] LABS: PCO2 115.5 mmHg (35.0-45.0); pH 7.113 (7.360-7.450)
[2019-12-31 09:22] LABS: BE(vivo) 4.2 mmol/L (-2 to +3); HCO3 35.2 mmol/L (22.0-26.0); PO2 104.3 mmHg (80.0-100.0); sO2 95.6 % (92.0-98.0)
--- NOTE | 2019-12-31 09:23 | NUR ---
If not ready for po intake in next 24hr, would consider restart enteral nutrition via dobhoff of vital high protein at goal of 55ml/hr
[2019-12-31 09:26] LABS: PCO2 103.3 mmHg (35.0-45.0)
[2019-12-31 10:02] LABS: BE(vivo) 3.6 mmol/L (-2 to +3); HCO3 34.3 mmol/L (22.0-26.0); PO2 95.8 mmHg (80.0-100.0); sO2 94.6 % (92.0-98.0)
[2019-12-31 10:04] LABS: PCO2 99.6 mmHg (35.0-45.0); pH 7.155 (7.360-7.450)
--- NOTE | 2019-12-31 12:51 | NUR ---
ASSUMED PATIENT AT 0600- FOUND PATIENT LETHARGIC AND UNRESPONSIVE TO VOICE STIMULATION ONLY MILDLY RESPONSIVE TO PAIN. NOTIFIED DR KIM OF CHANGE IN LOC. OBTAINED AN ABG AND RESULTS REPORTED TO DR KIM. BIPAP WAS INITIATED AND ABG'S ARE BEING FOLLOWED FOR TRENDS. SR MEDARDOU TO HAVE CONVERSATION WITH THE FAMILY TO SEE HOW TO PROCEED. ABG'S ARE SLIGHTLY IMPROVING AND PATIENT IS BECOMING MORE AROUSABLE. WILL OBTAIN FOLLOW UP ABG'S AT 1400 AND PROCEED FROM THERE. WILL CONTINUE TO MONITOR PATIENT.
--- NOTE | 2019-12-31 14:55 | NUR ---
chart review. pt was requiring o2 and then needs use of bipap continuos. unable to visit with meera. cm tried calling daughter caitlyn, no answer way busy. no anticipated dc over the weekend, will cont following as needed for dc needs.
--- NOTE | 2019-12-31 19:55 | NUR ---
Patient was place on Bipap at 0840. Over the next several hours, patient slowly became more responsive. Patient's daughter here and spole with Dr. Moore. It was decided that the patient does not want the breathing tube again. code status changed to Full code woth No Intubation. Will continue on Bipap as patient tolerates. Patient is not progressoing towards the goals. See documentation on interventions for assessment detials.
[2020-01-01] VITALS (38 sets, daily range): BP systolic 94–163; BP diastolic 29–90
--- NOTE | 2020-01-01 06:35 | NUR ---
The pt was treated twice with prn pain med through the shift, with some relief obtained, she moans with ANY touch, even positioning her finger for an accucheck was uncomfortable for her. A rotation module was added to the bed, to assist with turns, she has pillows present for offloading her extremities. Monitor reads SR to ST, with PAC's BP has been 120's to 150's, she continues to have generalized +2-3 edema, especially to her BUE. The sclera in both eyes is still quite red, but slightly improved from this writer technical publications's last assessment, she is resisitive, at times, to receiving the eye drops, clamping her eyes shut tightly. Her accuchecks have been trending down, this morning at 108/111. She remains NPO for a follow up swallow eval. The bed is in the low/locked position, the call light is within reach and the siderails are up x 4. She is making minimal progress towards her POC goals.
--- NOTE | 2020-01-01 12:08 | NUR ---
0730>>> Bedside shift report received, care assumed. 0820>>> Assessments done as documented. Pt continues on Bipap setting and is tolerating. 1150>>> Dr Moore rounding on pt. Updated on pt's condition. See new orders.
[2020-01-02] VITALS (47 sets, daily range): BP systolic 111–162; BP diastolic 33–100
[2020-01-02 05:24] LABS: BE(vivo) 8.7 mmol/L (-2 to +3); HCO3 38.1 mmol/L (22.0-26.0); PCO2 92.7 mmHg (35.0-45.0); PO2 79.9 mmHg (80.0-100.0); pH 7.232 (7.360-7.450); sO2 92.7 % (92.0-98.0)
[2020-01-02 05:55] LABS: ABSOLUTE NEUTROPHILS 9.6 thou/uL (1.4-8.2); BASOPHILS 0.7 % (0.0-2.0); EOSINOPHILS 0.2 % (0.0-3.0); HEMATOCRIT 25.3 % (37.0-47.0); LYMPHOCYTES 5.3 % (24.0-44.0); MCH 33.3 pg (26.0-34.0); MCHC 31.8 g/dL (28.0-37.0); MCV 104.9 fL (80.0-100.0); MONOCYTES 6.4 % (1.0-8.0); PLATELET COUNT 115 thou/uL (150-400); POLYS 87.4 % (36.0-66.0); RBC 2.41 mil/uL (4.20-5.00); RDW 15.5 % (10.5-14.5)
--- NOTE | 2020-01-02 06:00 | NUR ---
VSS REMAINS ON BIPAP 40 % CRITICAL ABGS PHONE TO DR KIM. PT REMAINS A DO NOT INTUBATE. DROUSY THIS AM FOLLOWS COMMANDS. 700 CC UO THIS SHIFT BATHED. ZERO OUT FROM FMS. NOT PROGRESSING TOWARD GOALS.
[2020-01-02 06:32] LABS: ALBUMIN 2.1 g/dL (3.4-5.0); CALCIUM 8.9 mg/dL (8.5-10.1); CREATININE 1.6 mg/dL (0.6-1.0); POTASSIUM 4.7 mmol/L (3.5-5.1); TOTAL BILIRUBIN 0.2 mg/dL (0.2-1.0); TOTAL PROTEIN 5.2 g/dL (6.4-8.2)
[2020-01-02 14:26] LABS: BE(vivo) 9.8 mmol/L (-2 to +3); HCO3 37.9 mmol/L (22.0-26.0); PCO2 77.2 mmHg (35.0-45.0); PO2 137.3 mmHg (80.0-100.0); pH 7.309 (7.360-7.450); sO2 98.4 % (92.0-98.0)
--- NOTE | 2020-01-02 16:47 | NUR ---
ASSUMED CARE AT SHIFT CHANGE, ASSESSMENT CHARTED, AFEBRILE AND VSS. Q2 POSITIONED FOR COMFORT. REMAINS ON BIPAP AND NPO. RECTAL TUBE INPLACE,DOWNS TO DD WIH ADEQUATE AMOUNT OF URINE. DAUGHTER UPDATED AND WILL CONTINUE WITH POC.
[2020-01-03] VITALS (35 sets, daily range): BP systolic 97–165; BP diastolic 30–93
--- NOTE | 2020-01-03 15:02 | NUR ---
chart review. pt required bipap for 3 days, using oxygen per nc. unable to visit with meera rt resting. will cont following as needed for dc needs. possible will start to tamica steroids.
--- NOTE | 2020-01-03 16:11 | NUR ---
0800 - PT WAS TAKEN OFF THE BIPAP, INSTRUCTED BY RT TO NOTIFY IF PT IS SLUGGISH/LETHARGIC 0815 - SPO2 100% 20RR, NO SIGNS OF DISTRESS 0830 - ORAL CARE COMPLETED, PT'S COUGH LOOSE, BLOOD TINGED SPUTUM/MEDIUM AMOUNT 1055 - PT SEEN BY RT, STILL TOLERATING OFF OF BIPAP, NOW ON 3.5L/NC 1430 - PT WANTS BACK ON BIPAP, APPEARS ANXIOUS, RN REQUESTED ANTI ANXIETY MED 1500 - PT WANTS OFF OF BIPAP, BACK ON NC, TOLERATING TURNS/ORAL CARE BEING COMPLETED. SPO2 99%
[2020-01-04] VITALS (24 sets, daily range): BP systolic 96–155; BP diastolic 25–93
[2020-01-04 05:53] LABS: HEMATOCRIT 23.5 % (37.0-47.0); HEMOGLOBIN 7.6 gm/dL (12.0-15.0); MCH 33.5 pg (26.0-34.0); MCHC 32.2 g/dL (28.0-37.0); RBC 2.26 mil/uL (4.20-5.00); RDW 14.7 % (10.5-14.5); WBC 9.1 thou/uL (4.0-11.0)
--- NOTE | 2020-01-04 06:00 | NUR ---
VSS REMAINS ON BIPAP 40 % DESATS QUICKLY WITH ANY EXERTION. 1200 CC UO THIS SHIFT. MORPHINE X 2 FOR GENERAL DISCOMFORT. PT HAS SLEPT MOST OF NIGHT. WILL CONT TO MONITOR
[2020-01-04 06:24] LABS: CALCIUM 8.8 mg/dL (8.5-10.1); CREATININE 1.3 mg/dL (0.6-1.0); POTASSIUM 4.3 mmol/L (3.5-5.1)
[2020-01-04 09:55] LABS: ALBUMIN 2.2 g/dL (3.4-5.0); TOTAL BILIRUBIN 0.2 mg/dL (0.2-1.0)
--- NOTE | 2020-01-04 09:56 | NUR ---
WOUND CARE NOTE; ASSESSED SKIN BREAKDOWN POSTERIOR LABIA AREA AND GROIN W/ ORDERING MACHINE OPERATOR SALLY, SEVERAL SMALL OPEN ULCERS LABIA X3 ~1cm IN SIZE, RECTAL TUBE IN PLACE, AREA OF BREAKDOWN JUST NOTICED YESTERAY, UNSURE OF CAUSE, YEAST? RECTAL TUBE? NO NOTES SKIN BREAKDOWN ON ADMISSION, DORIS YEAST LIKE SKIN BREAKDOWN GROIN AREA W/ ODOR PRESENT, PT ON VENT RECOMMENDATIONS KEEP RECTAL/VAGINAL AREA CLEAN, APPLY ANTIFUNGAL CREAM BID AND PRN, INTERDRY GROIN FOLDS, HAVE HOSPITALIST EVAL IF NEED FOR ANTIFUNGAL POWDER GROIN AREA ORDERING MACHINE OPERATOR AWARE
--- NOTE | 2020-01-04 12:00 | NUR ---
tolerating bipap this am, npo, large amount urine output in response to lasix. caitlyn aquino, dpoa inquired regarding pt status, updated including pt remains on bipap for resp support and has yeast in groin area. dr. gage present and dr. frias present in am. dr. carrillo present.
--- NOTE | 2020-01-04 13:26 | NUR ---
Dr. Goetz present. then pt more awake, bipap off, placed on 2L/nc with sa02-98% and watching tv.
[2020-01-05] VITALS (19 sets, daily range): BP systolic 109–143; BP diastolic 41–61
--- NOTE | 2020-01-05 01:09 | NUR ---
0105- Nurse noted urine output to start dwindling down to barely 30ml per hour and it had been greater than 100ml/hour. Nurse manipulated panda tubing without any further results. Nurse performed bladder scan and it showed fist time 414ml and second time 415ml of urine in bladder. Nurse then irrigated tubing and repositioned patient onto her right side. Urine output post interventions was 525ml. Nurse to continue to monitor patient urine output status.
[2020-01-05 07:14] LABS: ALBUMIN 2.2 g/dL (3.4-5.0); CALCIUM 8.7 mg/dL (8.5-10.1); CREATININE 1.2 mg/dL (0.6-1.0); PHOSPHORUS 3.2 mg/dL (2.5-4.9); POTASSIUM 3.9 mmol/L (3.5-5.1); TOTAL BILIRUBIN 0.3 mg/dL (0.2-1.0); TOTAL PROTEIN 4.9 g/dL (6.4-8.2)
--- NOTE | 2020-01-05 16:29 | NUR ---
0959- ASSOCIATE JUVENILE COURT JUDGE IN ROOM CHANGING PICC LINE DRESSING AND ALERTED RN TO R ARM MEDIAL AC. AREA IS SWOLLEN AND BRUISED AND IT HAS A ROUND HARD KNOT LIKE APPEARANCE. DR. TREVIÑO WAS PAGED AND RETURNED CALL AND WAS NOTIFIED BY RN OF FINDING. RN ASKED IF DR TREVIÑO WANTED A BEDSIDE ULTRASOUND, DR DECLINED AND STATED HE WOULD ROUND ON PT HIMSELF. DR. TREVIÑO ROUNDED ON PT AND STATED TO RN THAT IT IS A HEMATOMA AND TO PLACE ICE ON ARM AND ELEVATED WITH PILLOW. ICE WAS PLACED ON ARM WITH TOWEL BETWEEN SKIN AND ICE AND ARM WAS ELEVATED.
--- NOTE | 2020-01-05 17:47 | NUR ---
TO UNIT FROM ICU BY BED, REPORT FROM COLBY GALLEGOS. DOBHOFF STILL WITH WIRE INSERT UNTIL PLACEMENT CONFIRMED. SA PER TELE IN THE 'S. FALL PRECAUTIONS IN PLACE. WILL CONTINUE TO FOLLOW CLOSELY.
--- NOTE | 2020-01-06 04:40 | NUR ---
ASSUMED CARE FROM DAY SHIFT PT RESTING IN BED, DENIES PAIN OR SOA , ALERT AND ORIENTED TO TIME PLACE AND SITUATION. TUBE FEEDING STARTED PER ORDERD. PT TURNED EVERY 2 HOURS, TOLERATED WELL, WILL CONINTUE WITH CURRENT PLAN OF CARE.
[2020-01-06 04:45] VITALS: BP 163/67
[2020-01-06 05:46] LABS: HEMATOCRIT 23.7 % (37.0-47.0); HEMOGLOBIN 7.5 gm/dL (12.0-15.0); MCH 33.2 pg (26.0-34.0); MCHC 31.6 g/dL (28.0-37.0); RBC 2.26 mil/uL (4.20-5.00); RDW 15.1 % (10.5-14.5); WBC 11.2 thou/uL (4.0-11.0)
[2020-01-06 05:57] LABS: CALCIUM 8.9 mg/dL (8.5-10.1); CREATININE 1.2 mg/dL (0.6-1.0); MAGNESIUM 1.9 mg/dL (1.8-2.4); PHOSPHORUS 2.6 mg/dL (2.5-4.9); POTASSIUM 3.9 mmol/L (3.5-5.1)
[2020-01-06 08:45] VITALS: BP 147/68
--- NOTE | 2020-01-06 09:29 | NUR ---
PT. ALERT AND TALKS WITH STAFF. DOES HAVE ORAL SECRETIONS THAT SHE IS CLEARNIG AND USING A KLEENEX FOR, YELLOW TINGED AT THIS ITME. WATCHING TV, SLEEPY OVERALL BUT APPROPRIATE WHEN AROUSES. TUBE FEEDINGS ADVANCE TO 40/HR AT THIS TIME NO RESIDUALS WHEN CHECK FOR SUCH, TUBE IN PLACE BY AUSCULTATION VERIFICATIION AND ASSESSMENT. RECTAL TUBE REMOVED AND WATCHING AREA FOR SKIN BREAKDOWN TODAY. THERAPEUTIC BEAD TO PREVENT SKIN BREAKDOWN AND TURNING HER FREQUENTLY TODAY PLANNED. DR OCONNELL ROUNDED ON HER, NO NEW ORDERS ONTAIND AT THIS TIME.
[2020-01-06 12:30] VITALS: BP 145/66
--- NOTE | 2020-01-06 13:03 | NUR ---
WOUND CARE F/U; THE PATIENT WAS ALERT AND ORIENTED DURING MY ASSESSMENT. SHE WOULD ONLY ALLOW A LIMITED ASSESSMENT. THERE WAS NO FUNGAL ODOR OR C/O PAIN OR ITCHING PER THE PATIENT. THERE WAS NO ERYTHEMA. THE PATIENT HAS HAD INCONTINECE EPISODES PER THE STUDIO CONTROL OPERATOR TODAY. NO CHANGES ARE NECCESSARY THIS TIME.
--- NOTE | 2020-01-06 14:38 | NUR ---
Patient transferred from ICU to . Therapy first evals. Patient has ng tube. Patient found down in home. Sp with dtr. Discussed dc planning. Reviewed skilled care and home health. Left information in room. Dtr reports patient is not near ready for discharge. dtr prefers home healht if able. She reports concern for skilled care in which they cannot visit except possibly window and patio. She reports she would be concerned with care at facility. Left blue advantage list. Home health list in room for review.
[2020-01-06 16:15] VITALS: BP 141/60
[2020-01-06 20:15] VITALS: BP 125/50
[2020-01-07 04:45] VITALS: BP 137/55
[2020-01-07 05:24] LABS: HEMATOCRIT 23.1 % (37.0-47.0); HEMOGLOBIN 7.2 gm/dL (12.0-15.0); MCH 32.9 pg (26.0-34.0); MCHC 31.4 g/dL (28.0-37.0); MCV 105.1 fL (80.0-100.0); RBC 2.2 mil/uL (4.20-5.00); RDW 15.2 % (10.5-14.5); WBC 12.9 thou/uL (4.0-11.0)
[2020-01-07 06:14] LABS: CALCIUM 8.7 mg/dL (8.5-10.1); CREATININE 1.2 mg/dL (0.6-1.0); MAGNESIUM 1.7 mg/dL (1.8-2.4); PHOSPHORUS 2.7 mg/dL (2.5-4.9)
[2020-01-07 08:37] VITALS: BP 129/58
--- NOTE | 2020-01-07 11:31 | NUR ---
Received awake on bed. Due medications given as prescribed, crushed and given thru Dobhoff. Mouth care done to patient, mouth swabs done and applied lip moisturizer- On nothing per orem. On O2 at 3lpm via nasal cannula. On telemetry; no complains of chest pain, crushing sensation and heaviness. On blood sugar monitoring- taken and recorded every 6 hours. With ongoing tube feeding of Vital High protein at 55ml/hr(goal) via Dobhoff at R nare at 63cm; tape in place and secured. Incontinent of bowels, checked frequently and changed as needed; with panda in place- irrigated from time to time; output measured and recorded accordingly. With 3 lumen PICC line at R upper arm; dressing C/D/I- on D5W at 60cc/hr, infusing well; on IV antibiotics. Falls bundle in place. With generalized edema noted; turned on her sides from time to time; extremities elevated. With noted pressure injury at buttocks while cleaning her up from her bowel movement- photo to be taken. Assisted in ADLs. No nausea, no vomiting and no abdominal pain noted from assessment this AM. To continue monitoring patient.
[2020-01-07 11:41] VITALS: BP 114/49
--- NOTE | 2020-01-07 14:42 | NUR ---
Discussion with dtr regarding dc planning. She reports she has been at bedside with her mom. She reports she wants time in hospital for her mother to progress to hopefully return home with home health care. She is hopeful for her to progress with therapy to be able to walk a short distance with walker. She is not expecting huge milestones but enough that she is not as weak as she is today. She does not want skilled care. She is unable to see her mother daily and care rec, she is not comfortable with that scenario. Patient cont with NG tube and IVs therapy evals in progress.
[2020-01-07 17:21] VITALS: BP 138/48
[2020-01-07 19:40] VITALS: BP 105/41
--- NOTE | 2020-01-08 04:38 | NUR ---
Assumed pt care at 1900. Pt is drowsy but arousable. No sign of distress noted in pt. Pt verbalizes pain. Assessment completed and documented. Fall precaution in place. Scheduled meds administered to pt. Feeding tube in place. No acute event overnight. No further needs at this time
[2020-01-08 05:05] VITALS: BP 116/53
[2020-01-08 06:45] LABS: ANION GAP < 0 mmol/L (7-16); BUN 44 mg/dL (7-18); CALCIUM 8.6 mg/dL (8.5-10.1); CHLORIDE 103 mmol/L (98-107); CO2 41 mmol/L (21-32); CREATININE 1.4 mg/dL (0.6-1.0); GLUCOSE 264 mg/dL (74-106); MAGNESIUM 1.6 mg/dL (1.8-2.4); PHOSPHORUS 2.6 mg/dL (2.5-4.9); POTASSIUM 4.1 mmol/L (3.5-5.1); SODIUM 143 mmol/L (136-145)
[2020-01-08 10:08] VITALS: BP 136/51
[2020-01-08 11:49] VITALS: BP 113/44
[2020-01-08 16:25] VITALS: BP 112/46
--- NOTE | 2020-01-08 18:34 | NUR ---
RECEIVED PT'S CARE AROUND 0740; PT. ON BED RESTING WITH EYES CLOSED; EQUAL CHEST RISING NOTICED; SR ON THE MONITOR; DURING AM ASSESSMENT AOX4; C/O BUTTOCKS PAIN; NO REQUESTED OF PRN PAIN MEDICATION; AM MEDICATION GIVEN; HELPED WITH BREAKFAST; TOLERATED WELL; ABLE TO HAVE PILLS; DURING HOSPITALIST ROUNDING NOTIFIED ABOUT DIET UPDATED & FLUIDS; ORDERS ON PLACED; NOTIFIED ABOUT ELEVATED BG; ST. UNDERSTANDING; MONITORING; REFUSED LUNCH; TURNED FROM SIDE TO SIDE; HAD LARGE BM DURING THE AFTERNOON; WOUND CARE PERFORMED; ABLE TO EAT DINNER BY HERSELF; ENCOURAGE TO USE EXTREMITIES; FEEDING TITRATE DOWN PER PHYSICIAN RX; MONITORING; ASSESSMENT CHARGED; FOLLOWING POC; WILL PASS ON REPORT;
[2020-01-08 19:47] VITALS: BP 139/57
[2020-01-09 04:00] VITALS: BP 149/74
--- NOTE | 2020-01-09 04:00 | NUR ---
PT BEEN PLEASANT AND COOPERATIVE WITH CARES ALL THRO THE NOC. Q2 HR TURNS PROVIDED.PT DENIES PAIN. DOWNS TO D/D WITH ADEQUATE DARK YELLOW OUTPUT.ORAL CARE PROVIDED. TUBE FEEDING VIA DOBHOFF, RATE REDUCED TO 30CC/HR AT 2100 HRS. PT TOLERATING FINE. SMEARS OF BM. EXCORIATED BOTTOM, ANTIFUNGAL CREAM APPLIED. ABDOMINAL FOLDS LOOK OKAY-APPLYING NYSTATIN. SHE IS TAKING MEDS WELL IN APPLESAUCE. REFUSED THE LIQUID MUCINEX X 2-NO COUGH NOTED.BLE OFF LOADED.CALL LIGHT WITHIN REACH.
[2020-01-09 05:26] LABS: HEMATOCRIT 24.6 % (37.0-47.0); HEMOGLOBIN 7.8 gm/dL (12.0-15.0); MCH 33.4 pg (26.0-34.0); MCHC 31.8 g/dL (28.0-37.0); MCV 105.2 fL (80.0-100.0); RBC 2.34 mil/uL (4.20-5.00); RDW 15.3 % (10.5-14.5); WBC 10.8 thou/uL (4.0-11.0)
[2020-01-09 05:47] LABS: CALCIUM 8.8 mg/dL (8.5-10.1); CREATININE 1.4 mg/dL (0.6-1.0); MAGNESIUM 1.6 mg/dL (1.8-2.4); POTASSIUM 4.3 mmol/L (3.5-5.1)
[2020-01-09 07:55] VITALS: BP 149/54
[2020-01-09 16:30] VITALS: BP 154/65
--- NOTE | 2020-01-09 18:05 | NUR ---
ASSUMED CARE PT SHIFT CHANGE. ASSESSMENTS CHARTED.MEDS GIVEN PER MAY. PT AWAKE, DROWSY. ORIENTED FORGETFUL AT TIMES. VSS. DENIES PAIN .O2 SATS WNL ON 2L. TERESO REMAINS IN PLACE, TUBE FEEDS CURRENTLY 30MLHR PER ORDERS. DAUGHTER VISITED WITH PT THIS SHIFT. APPETITE LESS THAN ADEQUATE. PT ATE MINIMAL BREAKFAST, ENCOURAGED TO EAT LUNCH AND DINNER, SUCCESSFUL WITH ASSISTANCE. REFER TO I&O INTERVENTION FOR AMOUNT EATED. UOP ADEQUTAE. PT CURRENTLLY RESTING IN BED DENIES CONCERNS/NEEDS. WILL CONT TO MONITOR AND FOLLOW POC. WILL PASS ON REPORT TO NOC RN.
[2020-01-09 19:23] VITALS: BP 141/60
--- NOTE | 2020-01-10 04:16 | NUR ---
Assumed pt care at 2200. Pt is drowsy. Pt is stable through the night. Scheduled meds administered. Assessment completed and documented. No acute events overnight. David in place. Continue to monitor. Pending placement. No further needs at this time.
[2020-01-10 06:07] VITALS: BP 148/61
[2020-01-10 07:33] VITALS: BP 148/79
--- NOTE | 2020-01-10 11:01 | NUR ---
WOUND CONSULT; A NEW WOUND WAS IDENTIFIED TO THE RIGHT THIGH RELATED TO AN ALLEGIC REACTION TO A DOWNS CATHETER STAT-LOCK. A LARGE BLISTER DEVELOPED. THE SITE WAS MOVED TO THE LEFT THIGH. NO S/S OF INFECTION. OT (FEMALE) WAS PRESENT. RECOMMENDATIONS; XEROFROM GAUZE, COVER WITH A BORDER FOAM. DISCUSSED WITH COLBY
[2020-01-10 11:04] LABS: HEMATOCRIT 26.7 % (37.0-47.0); HEMOGLOBIN 8.3 gm/dL (12.0-15.0); MCH 33.2 pg (26.0-34.0); MCHC 31.2 g/dL (28.0-37.0); MCV 106.5 fL (80.0-100.0); RBC 2.51 mil/uL (4.20-5.00); RDW 15.6 % (10.5-14.5); WBC 10.2 thou/uL (4.0-11.0)
[2020-01-10 11:20] VITALS: BP 123/74
[2020-01-10 11:28] LABS: ALBUMIN 2.5 g/dL (3.4-5.0); CALCIUM 8.2 mg/dL (8.5-10.1); CREATININE 1.3 mg/dL (0.6-1.0); POTASSIUM 4.9 mmol/L (3.5-5.1); TOTAL BILIRUBIN 0.3 mg/dL (0.2-1.0); TOTAL PROTEIN 5.1 g/dL (6.4-8.2)
[2020-01-10 15:00] VITALS: BP 120/60
--- NOTE | 2020-01-10 19:24 | NUR ---
ASSUMED CARE PT SHIFT CHANGE. ASSESSMENTS CHARTED.MEDS GIVEN PER MAY. PT SLEPT MOST OF SHIFT. PT SEEMS UNMOTIVATED TO DO MUCH. APPETITE POOR. TUBE FEEDS REMAIN AT 30ML/HR. O2 SATS 99-100% ON 2-4L O2. PT DENIES SOB/CP. PT HAD 14 BEAT RUN VTACH PHYSICIAN NOTFIED, ORDERS RECEIVED FOR CARDIOLOGY CONSULT-REFER TO NOTES. PT TURNED IN BED TOLERATED. UNSURE OF PLAN FOR PT, PHYSICIAN TO D/W DAUGHTER REGARDING GOALS OF CARE. REPORT PASSED ONTO NOC RN.
[2020-01-10 20:00] VITALS: BP 111/56
[2020-01-11] VITALS (7 sets, daily range): BP systolic 100–137; BP diastolic 46–74
--- NOTE | 2020-01-11 04:38 | NUR ---
Assumed pt care at 1900. Pt is sleeping but is arousable. No sign of distress noted. Pt slept through the shift but arousable. Verbalizes pain. Pain med administered to pt. Assessment completed and documented. Scheduled meds administered to pt. No acute events. Pending discharge. No further needs at this time.
[2020-01-11 05:17] LABS: CREATININE 1.2 mg/dL (0.6-1.0); POTASSIUM 3.9 mmol/L (3.5-5.1)
--- NOTE | 2020-01-11 10:13 | NUR ---
WOUND CARE NOTE; ASSESSED LABIA/RECTAL AREA W/ ICU RN ELLE AND SOPHIA NAILS, ULCERS REMAIN BUT LESS DORIS AND HEALING, NO S/S INFECTION, HEALING, PT STATES AREA FEELS MUCH BETTER, DRSG LEFT UPPER THIGH INTACT, WILL ASSESS/CHANGE TOMORROW, INCONT STOOL AT TIMES, DOWNS IN PLACE, GROIN AREA LESS DORIS AND HEALING, OFF LOADING HEELS ON PILLOWS, ALERT AND COOPERATIVE RECOMMENDATIONS; CONT ANTIFUNGAL OINT TO RECTAL/LABIA AREA BID AND PRN AFTER EACH INCONT STOOL ICU RN AWARE
--- NOTE | 2020-01-11 16:50 | NUR ---
Patient with NG tube removed. She is eating but needs to be fed. ST working with patient. Called dtr Eloisa Pruett and left message on answering machine.
--- NOTE | 2020-01-11 19:24 | NUR ---
PT CARE ASSUMED AT 0700. ASSESSMENTS CHARTED. MEDICATION CHARTED. 3 LPM NC. BOB PICC 3 LUMEN. EXCORIATED ON INNER THIGHS, GROIN. TUBE FEEDING; PARRIS, DISCONTINUED AT 1015. TAKES PILLS CRUSHED IN APPLESAUCE. EATS VERY LITTLE OF HER MEALS. DROWSY ALL DAY. Q2 TURNS.
--- NOTE | 2020-01-12 04:39 | NUR ---
RECEIVED REPORT FROM FAITH BOWMAN.ASSUMED CARE AT MIDNIGHT.PATIENT ALERT, FORGETFUL.ABLE TO SWALLOW MED.TURN Q2.MONITOR SHOWS SR.POC CONTINUED.
[2020-01-12 04:45] VITALS: BP 116/53
[2020-01-12 07:43] VITALS: BP 125/53
--- NOTE | 2020-01-12 10:42 | NUR ---
WOUND CARE F/U RECTAL/LABIA WOUND AND R UPPER THIGH WOUND ASSESSED W/ CRAP SHOOTER CARINA AND STUDENT NURSE. INCONT LIQ STOOL, CLEANSED AND ANTIFUNGAL CREAM APPLIED, LESS DORIS, HEALING SLOWLY BUT INCONT STOOL HAPERING HEALING PROCESS, PT STATES AREA FEELS BETTER, DISCUSSED OPTION OF FECAL MANAGEMENT SYSTEM IF INCONT CONTS, R UPPER THIGH WOUND HEALING, SCANT DRAINAGE, NO S/S INFECTION, GROIN AREA HEALING, PHOTOS TAKEN AND PLACED ON CHART, SEE PROCESS INTERVENTION FOR WOUND DETAILS, DOWNS IN PLACE, ON LOW AIR LOSS MATTRESS RECOMMENDATIONS; CONT CURRENT POC FOR WOUNDS, XEROFORM GAUZE, BORDER FOAM TO THIGH WOUND CHANGE 3X WEEK, ANTIFUNGAL CREAM TO RECTAL/LABIA AREA CRAP SHOOTER AWARE CONT CURRENT POC
[2020-01-12 14:00] VITALS: BP 122/61
[2020-01-12 17:09] VITALS: BP 103/37
--- NOTE | 2020-01-12 17:37 | NUR ---
Spoke with dtr who reports she DOES NOT WANT skilled care for her mother. COVID present at facilities and cannot see patient at facility. She also does not believe patient will have as good as care as family at home. Reviewed home health care, private dty and discussed equiptment in home and insurance coverage. Dtr reports tenative plan of staying at patients brother home as he is home all day. Family members can assist with care in his home. Discussed possible 5N consult and rehab to eval if candidate. Dtr agreeable. She needed to end call. Alerted casemgt will call tomorrow. Spoke with phys regarding dc planning.
[2020-01-12 18:30] LABS: HEMATOCRIT 25.6 % (37.0-47.0); HEMOGLOBIN 7.9 gm/dL (12.0-15.0); MCH 33.7 pg (26.0-34.0); MCV 108.6 fL (80.0-100.0); RBC 2.36 mil/uL (4.20-5.00); RDW 15.9 % (10.5-14.5); WBC 8.9 thou/uL (4.0-11.0)
[2020-01-12 18:44] LABS: ALBUMIN 2.1 g/dL (3.4-5.0); ANION GAP < 0 mmol/L (7-16); BUN 43 mg/dL (7-18); CALCIUM 8.7 mg/dL (8.5-10.1); CHLORIDE 109 mmol/L (98-107); CO2 42 mmol/L (21-32); CREATININE 1.4 mg/dL (0.6-1.0); GLUCOSE 101 mg/dL (74-106); MAGNESIUM 1.8 mg/dL (1.8-2.4); POTASSIUM 4.7 mmol/L (3.5-5.1); SGOT 29 U/L (15-37); SGPT 26 U/L (30-65); SODIUM 150 mmol/L (136-145); TOTAL BILIRUBIN 0.2 mg/dL (0.2-1.0); TOTAL PROTEIN 5.3 g/dL (6.4-8.2)
[2020-01-12 18:52] LABS: % SATURATION 22 % (20-39); IRON 33 ug/dL (50-170); TIBC 150 ug/dL (250-450)
--- NOTE | 2020-01-12 19:00 | NUR ---
Pt very fatigued this afternoon. Pt is arousable. Medicated once with Tramadol for back pain with partial relief. Pt refused to work with PT stating she was too tired. Report given to RN assuming care. Poor appetite and oral intake.
[2020-01-12 19:18] LABS: FOLIC ACID 20.1 ng/mL (8.6-58.9)
[2020-01-12 21:15] VITALS: BP 112/58
--- NOTE | 2020-01-13 03:40 | NUR ---
pt AO X3. DROWSY BUT EASY TO AWAKEN. SACRAL PAIN ALLEVIAED BY Q2 TURNS. DENIES NAUSEA AND VOMITING. NO C/O CHEST PAIN. SR ON THE MONITOR. MAINTAINED ON 3L NC O2. CATHETER PATENT WITH MODERATE OUT PUT. . WILL CONTINUE TO MONITOR PATIENTS MENTATION SHE APPEAR LITTLE DOWSY. NO OTHER CONCERNS.
[2020-01-13 04:45] VITALS: BP 114/42
[2020-01-13 05:41] LABS: HEMATOCRIT 26.1 % (37.0-47.0); MCH 33.2 pg (26.0-34.0); MCHC 30.4 g/dL (28.0-37.0); RBC 2.4 mil/uL (4.20-5.00); RDW 15.9 % (10.5-14.5); WBC 8.8 thou/uL (4.0-11.0)
[2020-01-13 05:50] LABS: ANION GAP < 0 mmol/L (7-16); BUN 41 mg/dL (7-18); CALCIUM 8.9 mg/dL (8.5-10.1); CHLORIDE 110 mmol/L (98-107); CO2 40 mmol/L (21-32); CREATININE 1.4 mg/dL (0.6-1.0); GLUCOSE 132 mg/dL (74-106); MAGNESIUM 1.8 mg/dL (1.8-2.4); POTASSIUM 4.4 mmol/L (3.5-5.1); SODIUM 148 mmol/L (136-145)
[2020-01-13 08:03] VITALS: BP 121/65
--- NOTE | 2020-01-13 08:10 | NUR ---
PT. RESTING AROUSES TO NAME, OPENS EYES AND ASKING FOR WATER. GAVE HER SOME JELLO AT THIS TIME, NO SWALLOWING DIFFICULTY. REMAINS ON 3L NC, DENIES ANY CHEST PAIN BUT " A LITTLE SOB EVERY NOW AND THEN", WILL CONTINUE TO MONITOR. CURRENTLY DRY, NO BM, FUNGAL POWDER APPLIED TO VAGINAL AREA FOR SKIN BREAKDOWN PREVENTION, ETC. PICC IN RIGHT UPPER FOREARM FLUSHES EASILY, BLOOD RETURN OBTAINED AT THIS TIME.
--- NOTE | 2020-01-13 11:06 | NUR ---
TURNED PT. ONTO HER LEFT SIDE NOW FOR SACRAL HEALING OF SKUIN BREAKDOWN AREA. CLEANSED WITH SPRAY AND BARRIER OINTMENT AT THIS TIME. THE WOULD ON HER ANAL TO SACRAL AREA IS IMPROVING AND HAS BEEN DRY ALL MORNING SO THAT IS AN IMPROVEMENT IN AND OF ITSELF THE AIDE TOLD ME SHE HAS CONSTANT LIQUID STOOOLS YESTERDAY AND THEY HAD DIFFICULTY KEEPING THAT AREA DRY.
[2020-01-13 11:39] VITALS: BP 125/67
[2020-01-13 15:00] VITALS: BP 125/52
--- NOTE | 2020-01-13 16:16 | NUR ---
FAXED REFERRAL TO [facility] RECEIVED CONFIRMATION AND LEFT MSG WITH MADHAVI IN ADM TO REVIEW. [facility] WITH [facility]AB[facility] IN AD ADM SHE RECEIVED REFERRAL AND WILL REVIEW. FA[facility]ED REFERRAL TO [facility] SPOKE WITH DEBBY IN ADM SHE RECEIVED REFERRAL AND WILL REVIEW. DP TO FOLLOW.
[2020-01-13 20:30] VITALS: BP 137/58
[2020-01-14 04:15] VITALS: BP 150/70
[2020-01-14 05:41] LABS: CALCIUM 9.1 mg/dL (8.5-10.1); CREATININE 1.3 mg/dL (0.6-1.0); HEMATOCRIT 26.9 % (37.0-47.0); HEMOGLOBIN 8.4 gm/dL (12.0-15.0); MAGNESIUM 1.8 mg/dL (1.8-2.4); MCH 33.5 pg (26.0-34.0); MCHC 31.1 g/dL (28.0-37.0); MCV 107.9 fL (80.0-100.0); POTASSIUM 4.5 mmol/L (3.5-5.1); RBC 2.5 mil/uL (4.20-5.00); RDW 15.4 % (10.5-14.5); WBC 10.5 thou/uL (4.0-11.0)
[2020-01-14 07:11] VITALS: BP 143/82
--- NOTE | 2020-01-14 11:22 | NUR ---
WOUND CARE F/U; ASSESSMENT OF THE RIGHT INNER THIGH NOTED. UNABLE TO ASSESS LABIA/PERIRECTAL AREAS DUE TO PATIENTS CONDITION. THE PATIENT IS GETTING BLOOD AT THIS TIME. RECOMMENNDATIONS; CONTINUE CURRENT TREATMENT RN PRESENT
[2020-01-14 11:25] VITALS: BP 135/65
--- NOTE | 2020-01-14 12:12 | NUR ---
08:00-WILL BE HEADING DOEWN TO XRAY OF ABDOMEN THIS MORNING, TICKET TO RIDE COMPLETED FOR SUCH. HELPED STAFF TRANSFER HER ONTO THE CART FOR TRANSPORT, NO ISSUES OBSERVED, TOLERATED PROCEDURE WELL. PT. RESPONDS APPROPRTIATELY TO QUESTIONS AND CONTINUES TO NOT WANT TO DO ANY OF HER PT/OT OVERALL. DENIES ANY CHEST PAIN, NO SHORTNESS OF BREATH THIS FAR THIS AM. FLUSHED TRIPLE LUMEN HEAVILY WAS GETTING SOME RESISTANCE IN DOING SUCH THIS AM, NOW [place] IS SLUGGISH, OTHER TWO WHITE PORTS ARE BEST ACCESS AT THIS TIME TODAY, FLUSHED EASILY. SINUS TACHYCARDIA THIS WHICH IS SLIGHTLY NEW OVERALL LAST 12 HOURS.
--- NOTE | 2020-01-14 14:17 | NUR ---
Nutrition: day 1 calorie count, 3 menus kept. Pt consumed 855 kcals and 50 gm protein or 55% kcal needs, 70% protein needs. Pt needs assistance with all meals. Receives supplements on trays. Continue current interventions. D/C calorie count.
--- NOTE | 2020-01-14 14:57 | NUR ---
Improvement Leader spoke with pt's dtr Eloisa at length yesterday evening regarding dc planning options. She was advised that 5N acute rehab is out of network. Referrals sent to [facility] and [facility] however pt is refusing some therapy and has low endurance which will likely get denied by her insurance plan. Rehab medicine evaluated her and recommended SNF vs acute rehab as well. SNF listing left for dtr at bedside to [facility] with her sister Jenny. Eloisa confirmed that they had spoken with the attending and understand that she is very weak with poor po intake. She will try to encourage pt to eat and participate in therapy as much as possible for best chance of recovery. She reports family to be very supportive and planning for pt to stay with her brother who is retired and home to provide 24hr support. HH, private duty, and dme discussed as well. Covid risk and visitor restrictions at SNF discussed. GI consult ordered yesterday due to positive occult blood. KUB this am along with john count. Case discussed with the care team this am. Awaiting additional imput from the care team regarding her plan of care for nutrition. Dtrs to [facility] snf listing and advise on preferences.
[2020-01-14 15:37] VITALS: BP 141/65
--- NOTE | 2020-01-14 16:20 | NUR ---
08:00- PT. TURNED AT THIS TIME TO OTHER SIDE, NO BOWEL MOVEMENT YET THUS FAR, SHE IS DRY WHICH IS VASTLY IMPROVING HER SKIN BREAKDOWN AREAS. SCLERA EDEMA IS REALLY PRONOUNCED TODAY, SPENT HALF AN HOUR CLEANING HER EYES BILATERALLY WITH A WARM WASH CLOTH SHE HAD COPIOUS AMOUNTS OF EXUDATE FROM BOTH EYES THIS AM. EYE GTT'S APPLIED. IRON INFUSING GTT NOW. SHE IS MORE CONVERSATIONAL TODAY AND RESPONDS TO VERY SIMPLE QUESTIONS.
--- NOTE | 2020-01-14 16:23 | NUR ---
12:00-PT. BACK FROM RADIOLOGY TODAY FOR ABDOMEN XRAY, TOLERATED TRANSGER AND PROCEDURE WELL. FED HER SHE ATE 50% OF HER LUNCH TODAY WHICH IS HER BEST EFFORTS THUS FAR. SHE LOVES HER ICE TEA SO MORE OFFERED. NSR, NO ECTOPY. DENIES CP, DENIES SOB.
--- NOTE | 2020-01-14 16:43 | NUR ---
FA[facility]ED REFERRAL TO [facility] SPOKE WITH JERROD IN ADM SHE RECEIVED REFERRAL BUT FACILITY IS ON HOLD FOR NEW ADMITS TIL FRIDAY DUE TO COVID AND SHOULD BE ABLE TO TAKE ADMITS FRIDAY. PT WILL NEED HOSPITAL BED AND WHEELCHAIR FOR HOME IF FAMILY DECIDES TO TAKE PT HOME WITH HH. FAXED REFERRAL/SCRIPTS TO [facility] RECEIVED CONFIRMATION AND WILL F/U WITH [facility] ON FRIDAY. DP TO FOLLOW.
--- NOTE | 2020-01-14 17:29 | NUR ---
Residential Aide visited with dtr Eloisa at bedside. The only SNF they would consider [facility]however they are on hold for admissions due to covid. Dtr is talking with family this evening but plan at this time is from dc home to pt's brothers home on Friday. Dtr to text cm the address. HH per [facility] and hospital bed/w/c to be setup for [facility] Friday to the brothers house. Pt' has her home o2 per [facility] as well. Dc sr. merchandise planner has faxed scripts for dme to [facility]. to confirm address with the [employer] liason this weekend. The [facility] liason is aware of likely dc Friday and pt will need RT and ST as well as RN,PT, and Ot services. They have had her onservice back in the summer. Face sheet faxed to their intake dept. They will need full referral faxed to intake on Friday am to confirm staffing. Dtr indicates that family will coordinate schedules to be with her 24hrs. The attending and care team updated.
[2020-01-14 17:34] VITALS: BP 141/65
--- NOTE | 2020-01-14 17:56 | NUR ---
TURNED PT. AT THIS TIME NO NEW STOOLS TODAY AT ALL. DAUGHTER LEFT UNIT WAS AT BEDSIDE EARLIER TALKING WITH BOAT PILOT IN REGARDS TO HER MOTHER RETUNING TO HOME ON FRIDAY WITH HOME HEALTH VERSUS ANY PLACEMENT IN ANY FAICLITIES-THEY PREFER NOT TO GO THAT ROUTE MOVING FORWARD NOW, WILL PASS ALONG TO STAFF OVER THE WEEKEND.
[2020-01-14 19:11] VITALS: BP 123/70
--- NOTE | 2020-01-14 19:28 | NUR ---
PT. ATE 75% OF HER DINNER AND NOW C/O "INDIGESTION". BREATHING TREATMENT ON HER SHE WAS INCREASED RESPIRATORY RATE AT THIS TIME. OXYGEN SATURATIONS NOW=95%.
[2020-01-15] VITALS (18 sets, daily range): BP systolic 83–143; BP diastolic 41–70
--- NOTE | 2020-01-15 03:32 | NUR ---
PT DROWSY AND TIRED THROUGH THE NIGHT. Q 2 TURNS. AO X 3. PT JUST WANT TO BE LEFT ALONE. DENIES SOB. RECEIVING RESP. TREATMENTS. NO OTHER CONCERNS OVERNIGHT. WILL CONTINUE TO MONITOR AND FOLLOW POC
[2020-01-15 04:57] LABS: ANION GAP < 0 mmol/L (7-16); BUN 46 mg/dL (7-18); CALCIUM 8.6 mg/dL (8.5-10.1); CHLORIDE 111 mmol/L (98-107); CO2 43 mmol/L (21-32); CREATININE 1.5 mg/dL (0.6-1.0); GLUCOSE 57 mg/dL (74-106); MAGNESIUM 1.9 mg/dL (1.8-2.4); POTASSIUM 4.5 mmol/L (3.5-5.1); SODIUM 151 mmol/L (136-145)
[2020-01-15 05:09] LABS: HEMATOCRIT 25.9 % (37.0-47.0); MCH 33.3 pg (26.0-34.0); MCHC 30.7 g/dL (28.0-37.0); MCV 108.5 fL (80.0-100.0); RBC 2.39 mil/uL (4.20-5.00); RDW 16.1 % (10.5-14.5); WBC 8.4 thou/uL (4.0-11.0)
--- NOTE | 2020-01-15 09:57 | NUR ---
starting prime time and rapid response called and she will be moving to icu rt changes in condition, placed on bipap and low bs. will cont following as needed for dc needs.
[2020-01-15 10:08] LABS: BE(vivo) 12.1 mmol/L (-2 to +3); PCO2 119.9 mmHg (35.0-45.0); PO2 79.5 mmHg (80.0-100.0); pH 7.173 (7.360-7.450); sO2 90.9 % (92.0-98.0)
[2020-01-15 10:09] LABS: HEMATOCRIT 25.3 % (37.0-47.0); HEMOGLOBIN 7.8 gm/dL (12.0-15.0); MCH 33.4 pg (26.0-34.0); MCHC 30.7 g/dL (28.0-37.0); MCV 108.9 fL (80.0-100.0); RBC 2.33 mil/uL (4.20-5.00); RDW 15.7 % (10.5-14.5); WBC 8.6 thou/uL (4.0-11.0)
[2020-01-15 10:26] LABS: MAGNESIUM 1.9 mg/dL (1.8-2.4); TROPONIN-I 0.14 ng/mL (<0.06)
--- NOTE | 2020-01-15 10:56 | NUR ---
PT CARE ASSUMED AT 0700. ASSESSMENT CHARTED. MEDICATION CHARTED. PT POC GLUCOSE 65/156; APPLE JUICE GIVEN WITH CARVEDILOL; HR 77. HR DROPPED IN 30'S BRIEFLY. PT BECAME UNRESPONSIVE; DR ESPARZA CALLED; RAPID RESPONSE CALLED. PT PLACED ON BIPAP. D5W0.9%NS BOLUS 1000 ML. (1045) BP 101/57 MAP 66. PT TO BE TRANSFERRED TO 246 ICU.
[2020-01-15 11:34] LABS: BE(vivo) 6.1 mmol/L (-2 to +3); HCO3 35.2 mmol/L (22.0-26.0); PO2 91.5 mmHg (80.0-100.0); sO2 94.8 % (92.0-98.0)
[2020-01-15 11:35] LABS: PCO2 88.1 mmHg (35.0-45.0)
--- NOTE | 2020-01-15 13:07 | EKG ---
[facility] [place] [address] ELECTROCARDIOGRAM REPORT Name: JAMES RAI Room #: 241- ADM IN M.R.#: [id number] Admission: 12/21/19 Attend Phys: Parth Garza Discharge: Date of : 44 Report #: [id number] THIS REPORT FOR: cc: FLAVIO RICCI MD Physician not on staff Kike Winter MD ~ THIS REPORT FOR: //name// [facility] Test Date: 2020-01-15 Test Time: 10:09:57 Pat Name: JAMES RAI Department: Room: [facility] Gender: F Aprn: Elie BROWNE : 1940 Requested By: Parth Garza Order Number: [id number] MD: Kike Winter Measurements Intervals [place] Rate: 68 P: 54 TN: 149 QRS: -46 QRSD: 104 T: -43 QT: 430 QTc: 458 Interpretive Statements Sinus rhythm LAD, consider left anterior fascicular block Nonspecific T abnormalities, inferior leads Compared to ECG 12/24/2019 14:57:07 No significant differences Electronically Signed On 01-15-2020 13:07:14 CDT by Kike Winter [email or web address] <ELECTRONICALLY SIGNED> By: Kike Winter MD 01/15/20 1307 1009 1009 Kike Winter MD /EPI
--- NOTE | 2020-01-15 18:16 | NUR ---
Patient here from at 1200. Patient transfered to ICU bed and full monitoring. Dusty 2N RN stated that he notified the patient's daughter that the patient was being transfered to ICU. Patient arousable on bipap. Tolerating bipap settings. Heart rate and rhythm stable. Blood pressure soft. Antibiotics started as well as, IV fluids. Marginal u/o/. See documentation on interventions for assessment details. Will continue to monitor.
[2020-01-16] VITALS (34 sets, daily range): BP systolic 84–147; BP diastolic 37–68
[2020-01-16 05:21] LABS: BE(vivo) 3.2 mmol/L (-2 to +3); HCO3 30.4 mmol/L (22.0-26.0); PCO2 62.8 mmHg (35.0-45.0); PO2 68.6 mmHg (80.0-100.0); pH 7.303 (7.360-7.450); sO2 91.5 % (92.0-98.0)
[2020-01-16 05:58] LABS: HEMATOCRIT 24.4 % (37.0-47.0); HEMOGLOBIN 7.8 gm/dL (12.0-15.0); MCH 33.9 pg (26.0-34.0); MCHC 31.9 g/dL (28.0-37.0); MCV 106.4 fL (80.0-100.0); PLATELET COUNT 118 thou/uL (150-400); RBC 2.29 mil/uL (4.20-5.00); RDW 15.4 % (10.5-14.5); WBC 7.4 thou/uL (4.0-11.0)
--- NOTE | 2020-01-16 06:00 | NUR ---
PT HAS RESTED QUIETLY ALLL NIGHT. REMAINS ON BIPAP at 40 % FIO2 250 CC UO THIS SHIFT. SINUS RHYTHM. WILL CONT TO MONITOR
[2020-01-16 06:18] LABS: ALBUMIN 2.1 g/dL (3.4-5.0); ANION GAP 4 mmol/L (7-16); BUN 43 mg/dL (7-18); CALCIUM 8.4 mg/dL (8.5-10.1); CHLORIDE 110 mmol/L (98-107); CO2 35 mmol/L (21-32); CREATININE 1.5 mg/dL (0.6-1.0); GLUCOSE 231 mg/dL (74-106); POTASSIUM 4.8 mmol/L (3.5-5.1); SGOT 21 U/L (15-37); SGPT 23 U/L (30-65); SODIUM 149 mmol/L (136-145); TOTAL BILIRUBIN < 0.1 mg/dL (0.2-1.0); TOTAL PROTEIN 5.1 g/dL (6.4-8.2)
[2020-01-16 07:51] LABS: ABSOLUTE NEUTROPHILS 6.6 thou/uL (1.4-8.2); PLATELET ESTIMATE NORMAL
--- NOTE | 2020-01-16 17:26 | NUR ---
Patient has had a good day. Patient woke wide awake this am and was asking for a drink. Bipap removed and patient placed on 5l per NC. Patient swallowing adequate with thin liquids. Left patient on NC through breakfast. Tolerated well with adequate oxygenation. Patient ate a little but then stated that she had an upset stomach. Let patient digest a bit and then placed patient back on bipap. We did the same for lunch. Patient taking a pureed diet with thin liquids well. Patient's daughter visited this afternoon so left the patient off bipap. Will place patient back on the bipap after she is fed her supper for the night. Dr. Hercules wants her on the bipap overnight and while sleeping. Hear rate and rhythm stable as well as blood pressures. Marginal u/o noted. Small soft liquid stool x1 today. Spoke with daughter about plan of care and that patient will not be discharging on Friday. See documentation on interventions for assessment detials.
[2020-01-17] VITALS (25 sets, daily range): BP systolic 101–168; BP diastolic 48–81
[2020-01-17 03:20] LABS: CALCIUM 8.1 mg/dL (8.5-10.1); CREATININE 1.4 mg/dL (0.6-1.0); POTASSIUM 4.8 mmol/L (3.5-5.1)
--- NOTE | 2020-01-17 08:17 | NUR ---
Pt TRANSFERRED TO ICU. WILL PLACE ON HOLD AND AWAIT NEW ORDERS TO RESUME WHEN APPROPRIATE
--- NOTE | 2020-01-17 11:43 | NUR ---
WOUND CARE F/U; ASSESSED THIGH WOUND AND RECTAL/LABIA WOUND W/ EYEGLASS LENS GRINDER GBEMISOLA, THIGH WOUND HEALING, SCANT DRAINAGE, NO S/S INFECTION, RECTAL/LABIA AREA HEALING, NO S/S INFECTION, INCONT OF STOOL, CLEANSED, COOPERATIVE RECOMMENDATIONS CONT ANTIFUNGAL OINT TO RECTAL/LABIA AREA BID AND PRN, XEROFORM AND BORDER FOAM DRSG TO THIGH WOUND 3X WEEK EYEGLASS LENS GRINDER AWARE
--- NOTE | 2020-01-17 11:45 | NUR ---
cm notified by cm team after phone call from daughter that she will need bipap at home, that is the only thing keeping her alive and insurance company needs to know since no skilled places, we attempted and no own can take her. she will have to have bipap at home. she should have extra service with home health now per daughter graeme. referral sent to [facility] to see if she could get home bipap with out sleep study at this time? will cont following as needed for d c needs.
--- NOTE | 2020-01-17 12:00 | NUR ---
ASSUMED CARE @ 0700 01/17/20, PT ASSESSMENTS AND VSS COMPLETE PER ICU PROTOCOL. DR KIM @ BEDSIDE @ 0735 NO ORDERS RECIEVED AT THIS TIME. PT'S UO @ 10ML/HR OVER 2 HRS, DR KIM CALLED, LASIX ORDER RECEIVED. DINORAH JONES SENIOR SALES ENGINEER @ BEDSIDE @ [address] MANRIQUEZ GI @ BEDSIDE @ 3022, NO ORDERS RECIEVED AT THIS TIME. WILL CONTINUE TO MONITOR
--- NOTE | 2020-01-17 16:04 | NUR ---
5N CONSULT RECEIVED. Pt'S INSURANCE IS OON FOR 5N REHAB UNIT. THANK YOU FOR THIS REFERRAL.
[2020-01-17 22:06] LABS: HBsAG-EMPLOYEE EXPOSURE Negative (Negative); HCV AB-EMPLOYEE EXPOSURE <0.1 (0.0-0.9)
[2020-01-18] VITALS (15 sets, daily range): BP systolic 116–165; BP diastolic 48–104
--- NOTE | 2020-01-18 09:59 | NUR ---
took over care of patient sat 0715. At 0930 patient complained of chest tightness and was pursed lip breathing. I put in a stat order for a chest x-ray, ekg and troponin. EKG was done at bedside at 0950 and chest x-ray was done at bedside at 1005. Troponin was sent to the lab at 0955.
[2020-01-18 10:15] LABS: CREATININE 1.3 mg/dL (0.6-1.0); POTASSIUM 4.7 mmol/L (3.5-5.1)
--- NOTE | 2020-01-18 10:46 | EKG ---
[facility] [place] [address] ELECTROCARDIOGRAM REPORT Name: JAMES RAI Room #: 241-P ADM IN M.R.#: [id number] Admission: 12/21/19 Attend Phys: Parth Garza Discharge: Date of : 44 Report #: [id number] THIS REPORT FOR: cc: FLAVIO RICCI MD Physician not on staff Kike Winter MD ~ THIS REPORT FOR: //name// [facility] Test Date: 2020-01-18 Test Time: 09:59:46 Pat Name: JAMES RAI Department: Room: [facility] Gender: F Program Arranger: CANDY : 1940 Requested By: Jerome Hobbs Order Number: [id number] MD: Kike Winter Measurements Intervals [place] Rate: 92 P: 30 MT: 151 QRS: -50 QRSD: 101 T: 23 QT: 354 QTc: 438 Interpretive Statements Sinus rhythm Atrial premature complex Left anterior fascicular block Probable left ventricular hypertrophy Compared to ECG 01/15/2020 10:09:57 Atrial premature complex(es) now present Electronically Signed On 01-18-2020 10:46:14 ROBOTICS MECHANIC by Kike Winter [email or web address] <ELECTRONICALLY SIGNED> By: Kike Winter MD 01/18/20 1046 Kike Winter MD /EPI
--- NOTE | 2020-01-18 18:53 | NUR ---
PT TRANSFERED TO THE UNIT FROM THE ICU - ATTEMPTED TO ORIENTE PATIENT TO BEDSPACE - PT VERY LETHARGIC - NOT WNATING TO OPEN EYES AND TALK TO VERY MUCH. KENYA FOLLOW COMMANDS - TAKE MEDS. MEDS PER MAY - PT NEEDING TO BE FEED DUE TO VERY POOR EYESIGHT. FLUIDS ORDERED. APPEARS TO BE RESTING COMFORTABLY AT THE PRESENT TIME.
[2020-01-18 20:08] LABS: HEMATOCRIT 26.1 % (37.0-47.0); HEMOGLOBIN 8.1 gm/dL (12.0-15.0); MCH 33.4 pg (26.0-34.0); MCHC 30.8 g/dL (28.0-37.0); MCV 108.2 fL (80.0-100.0); RBC 2.42 mil/uL (4.20-5.00); RDW 15.8 % (10.5-14.5); WBC 9.3 thou/uL (4.0-11.0)
[2020-01-19] VITALS (7 sets, daily range): BP systolic 98–141; BP diastolic 40–65
--- NOTE | 2020-01-19 05:13 | NUR ---
pt had only 130cc out of panda this shift, bladder scane with no residual noted, lodging house keeper notified, no orders received at this time, will pass it on report, no other concerns at this time, progressing slowly towards
[2020-01-19 08:34] LABS: HEMATOCRIT 26.3 % (37.0-47.0); HEMOGLOBIN 8.1 gm/dL (12.0-15.0); MCH 33.3 pg (26.0-34.0); MCHC 30.7 g/dL (28.0-37.0); MCV 108.4 fL (80.0-100.0); RBC 2.43 mil/uL (4.20-5.00); RDW 15.8 % (10.5-14.5); WBC 9.1 thou/uL (4.0-11.0)
[2020-01-19 08:46] LABS: ANION GAP < 0 mmol/L (7-16); BUN 40 mg/dL (7-18); CALCIUM 8.2 mg/dL (8.5-10.1); CHLORIDE 110 mmol/L (98-107); CO2 35 mmol/L (21-32); CREATININE 1.4 mg/dL (0.6-1.0); GLUCOSE 171 mg/dL (74-106); SODIUM 144 mmol/L (136-145)
[2020-01-19 08:51] LABS: POTASSIUM 5.1 mmol/L (3.5-5.1)
--- NOTE | 2020-01-19 09:58 | NUR ---
WOUND CARE F/U ASSESSED RECTAL/LABIA WOUND AND R THIGH WOUND W/ CEREAL SUPERVISORCOLBY AMOS, THIGH WOUND HEALING, ALMOST CLOSED, NO DRAINAGE, NO S/S INFECTION, RECTAL/LABIA AREA ALSO HEALING, INCONT SMALL AMT MUSHY STOOL, NO S/S INFECTION, ALERT AND COOPERATIVE, PHOTOS TAKEN RECOMMENDATIONS; CONT ANTIFUNGAL CREAM TO RECTAL/LABIA AREA, BID AND PRN, XEROFORM GAUZE AND BORDER FOAM TO THIGH WOUND 3X WEEK CEREAL SUPERVISOR AWARE
--- NOTE | 2020-01-19 12:28 | NUR ---
[facility] script faxed and confirmed with [facility]. They will add to dme delievery of hospital bed and w/c. Dtr Eloisa anticipating dc tomorrow. Pt will be going to her brother's home at [address] [place] [address] via [facility]. [facility] to contact pt's dtr this afternoon to arrange for a delievery time today and education. They can assist with moving her O2 setup from her home to her brothers as well if family desires. Dc production planner faxed referral to [facility] and their liason is aware pt will need RT as well as RN,PT,OT and ST. Family will need lots of education as pt is total care at this time. [facility] called back and they can accept her again for services at the brother's home. Nursing and the attending updated. Dtr to advise on preferred dc time for tomorrow. Nursing to touch base with dtr on any needed caregiving education, meds, and f/u instructions.
--- NOTE | 2020-01-19 12:53 | NUR ---
FAXED REFERRAL TO [facility] RECEIVED CONFIRMATION ANTICIPATED DC TOMORROW.
--- NOTE | 2020-01-19 19:40 | NUR ---
ASSUMED CARE PT SHIFT CHANGE. ASSESSMENTS CHARTED.MEDS GIVEN PER MAR. PT DROWSY, ORIENTED X4. VSS. C/O HEADACHE TREATED WITH PO PAIN MEDS. PT TOLERATING DIET WELL, PT REMAINS WEAK AND UNABLE TO TOLERATE MUCH ACTIVITY. WOUND CARE COMPLETED PER ORDERS. O2 SATS WNL ON 3L O2. LOW URINE OUTPUT NOTED, COMMUNICATED TO PHYSICIAN WITH NO NEW ORDERS RECEIVED. NURSE SPOKE WITH DAUGHTER MADAI ON PHONE THIS SHIFT, MADAI WILL BE AT HOSPITAL AROUND 10 AM TOMORROW TO GET EDUCATED ON BASICS OF HOW TO PROPERLY CARE FOR PT. CASE MANAGEMENT ARRANGING HH. PT CURRENTLY RESTING IN BED, NO APPARENT NEEDS AT THIS TIME. WILL CONT TO MONITOR AND FOLLOW POC. REPORT PASSED ONTO NOC RN.
[2020-01-20 03:57] VITALS: BP 143/65
--- NOTE | 2020-01-20 04:01 | NUR ---
ASSUMED CARE OF PATIENT AT 1900. PATIENT ABLE TO TAKE HS MEDICATIONS CRUSHED IN PUDDING WITH NO ISSUE. PATIENT APPEARED TO SLEEP THROUGH NOC. ASSESSMENTS UNREMARKABLE.
[2020-01-20 05:13] LABS: ANION GAP < 0 mmol/L (7-16); BUN 45 mg/dL (7-18); CALCIUM 8.5 mg/dL (8.5-10.1); CHLORIDE 109 mmol/L (98-107); CO2 35 mmol/L (21-32); CREATININE 1.5 mg/dL (0.6-1.0); GLUCOSE 172 mg/dL (74-106); POTASSIUM 5.6 mmol/L (3.5-5.1); SODIUM 142 mmol/L (136-145)
[2020-01-20 05:17] LABS: HEMATOCRIT 28.1 % (37.0-47.0); HEMOGLOBIN 8.5 gm/dL (12.0-15.0); MCH 32.8 pg (26.0-34.0); MCHC 30.1 g/dL (28.0-37.0); MCV 109.1 fL (80.0-100.0); RBC 2.58 mil/uL (4.20-5.00); RDW 15.9 % (10.5-14.5); WBC 11.1 thou/uL (4.0-11.0)
[2020-01-20 07:32] VITALS: BP 118/54
[2020-01-20 11:18] VITALS: BP 126/53
[2020-01-20 11:45] VITALS: BP 141/65
--- NOTE | 2020-01-20 12:10 | NUR ---
DAUGHTER IS AT BEDSIDE, WORKING WITH PT/OT AND SPEECH THERAPY ON CARE OF HER MOTHER NOW. PT. IS MORE LETHARGIC TODAY SO AN ABG HAS BEEN ORDERED PER DR WALKER. LASIX ORDERED WELL FOR HER INCREASED EDEMA THIS AM. IVF DISCONTINUED. PT. RESPONDS TO HER NAME WHICH FOR ME HAS ALWAYS BEEN HER BASELINE WHILE HOSPITALIZED FOR THE MOST PART. TRIPLE LUMEN FLUSHES, BLOOD RETURN OBTAINED ON ASPIRATION AND DISCARDED. ON 3 LITERS NC AND NO SIGN'S OF RESPIRATORY ISSUES.
--- NOTE | 2020-01-20 13:05 | NUR ---
LONG DISCUSSIONS AND TEACH AND TRAIN WITH DAUGHTER AT BEDSIDE. WILL HAVE HER WATCH ALL MEDICATION ADMINSITRATION AND HAVE HER RETURN SKILL DEMO ON CLEANING, WOUND CARE OF PT.
[2020-01-20 13:29] LABS: BE(vivo) 0.9 mmol/L (-2 to +3); HCO3 31.5 mmol/L (22.0-26.0); PO2 88.3 mmHg (80.0-100.0); sO2 93.2 % (92.0-98.0)
[2020-01-20 13:32] LABS: pH 7.143 (7.360-7.450)
--- NOTE | 2020-01-20 15:38 | NUR ---
FAXED SCRIPTS FOR HOSPITAL BED AND WHEELCHAIR TO [facility] RECEIVED CONFIRMATION
[2020-01-20 15:43] VITALS: BP 127/50
--- NOTE | 2020-01-20 16:46 | NUR ---
Hospital bed/w/c and [facility] delievered to pt's brother's home today. Dtr here for training with therapy and nursing this am. Dc held today due to high co2 level. Plan for bipap overnight and dc to home tomorrow via [facility]. Pt's dtr has multiple medical appts tomorrow so we will schedule the ambulance at 5pm tomorrow evening. Dc data processing systems project planner updated [facility] as well.
[2020-01-20 19:53] VITALS: BP 131/64
[2020-01-21] VITALS (7 sets, daily range): BP systolic 111–158; BP diastolic 46–65
--- NOTE | 2020-01-21 04:09 | NUR ---
CARE ASSUMED 1900. PT ALERT AND ORIENTED TO SELF. PT REFUSED HER EVENING MEDICATIONS. ON BIPAP OVERNIGHT. 02 SATS MAINTAINED > 95 THROUGH THE NIGHT. NO SIGN OF RESPITORY DISTRESS NOT. Q2 TURNS. WILL CONTINUE TO MONITOR AND FOLLOW POC.
[2020-01-21 05:45] LABS: HEMATOCRIT 26.8 % (37.0-47.0); HEMOGLOBIN 8.2 gm/dL (12.0-15.0); MCH 33.2 pg (26.0-34.0); MCHC 30.7 g/dL (28.0-37.0); MCV 107.8 fL (80.0-100.0); RBC 2.49 mil/uL (4.20-5.00); RDW 15.4 % (10.5-14.5); WBC 9.5 thou/uL (4.0-11.0)
[2020-01-21 05:57] LABS: CALCIUM 8.6 mg/dL (8.5-10.1); CREATININE 1.6 mg/dL (0.6-1.0); POTASSIUM 5.8 mmol/L (3.5-5.1)
[2020-01-21 08:49] LABS: BE(vivo) 5.3 mmol/L (-2 to +3); HCO3 33.6 mmol/L (22.0-26.0); PO2 73.6 mmHg (80.0-100.0)
[2020-01-21 08:50] LABS: PCO2 75.6 mmHg (35.0-45.0); pH 7.266 (7.360-7.450)
[2020-01-21] MEDS ORDERED: DOXYCYCLINE HYC50 MG PO (12:16)
[2020-01-21] MEDS ORDERED: PACERONE 200 M200 M1 PO (12:16)
[2020-01-21] MEDS ORDERED: CARVEDILOL12.5 MG PO (12:17)
[2020-01-21] MEDS ORDERED: HUMALOG100 UNIT/1 SUBQ (12:40)
[2020-01-21] MEDS ORDERED: PREDNISONE 10 M10 M1 PO (12:41)
--- NOTE | 2020-01-21 16:08 | NUR ---
Pt dcing home this evening with 5:30 [facility]. Dtr here earlier and again this afternoon to reveiw dc instructins/med list etc with nursing. Dtr indicates dme is inplace at home and the dc urban and regional planner has faxed hh orders to [facility]. Care team updated.
--- NOTE | 2020-01-21 18:49 | NUR ---
ASSUMED CARE OF PT AT SHIFT CHANGE. ASSESSMENTS CHARTED. MEDS GIVEN PER MAY. PT ALERT TO SELF. C/O PAIN TREATED WITH PO MEDS WITH PARTIAL RELIEF. PT VS STABLE. DISCHARGE ORDERS AND INSTRUCTIONS COMPLETE WITH DAUGHTER. TRANSPORTATION VIA [facility]. ONCE PT IN AMBULANCE, BP BECAME UNSTABLEY LOW. [facility]EM[facility] TOOK HER INTO ER TO BE EVALUATED. THIS NURSE CALLED AND NOTIFIED DAUGHTER.
--- NOTE | 2020-01-24 09:59 | NUR ---
Call back rec'd from [facility] stating pt's dtr declined HH services if they are unable to provided bath aide services. Message left for pt's dtr to clarify. pcp is Dr. Zoran Lockhart.
== END 2020-01-21 18:00 | disposition home health service (06) | DRG 870 ==
LOC: ER 04:10 → 2N 06:34 → EROBS 06:34 → ICU 06:34 → 2N 12-22 22:59 → ICU 12-23 08:10 → 2N 01-05 16:32 → ICU 01-15 12:00 → 2N 01-18 12:49
PROVIDERS: Emergency Medicine; Hospitalist; Internal Medicine; Internal Medicine Cardiovascular Disease; Internal Medicine Pulmonary Disease; Nurse Practitioner; Pediatrics; Specialist; ADMIT Hospitalist; ATTEND Hospitalist
DX: A41.9 Sepsis, unspecified organism (principal); J96.22 Acute and chronic respiratory failure with hypercapnia; J96.21 Acute and chronic respiratory failure with hypoxia; R65.21 Severe sepsis with septic shock; J18.9 Pneumonia, unspecified organism; E43 Unspecified severe protein-calorie malnutrition; I50.43 Acute on chronic combined systolic (congestive) and diastolic (congestive) heart failure; G92 Toxic encephalopathy; N17.9 Acute kidney failure, unspecified; I42.9 Cardiomyopathy, unspecified; E87.0 Hyperosmolality and hypernatremia; I13.0 Hypertensive heart and chronic kidney disease with heart failure and stage 1 through stage 4 chronic kidney disease, or unspecified chronic kidney disease; I47.1 Supraventricular tachycardia; D62 Acute posthemorrhagic anemia; Z68.41 Body mass index [BMI] 40.0-44.9, adult; Z20.828 Contact with and (suspected) exposure to other viral communicable diseases; K21.9 Gastro-esophageal reflux disease without esophagitis; N18.9 Chronic kidney disease, unspecified; D63.8 Anemia in other chronic diseases classified elsewhere; D69.6 Thrombocytopenia, unspecified; D86.9 Sarcoidosis, unspecified; J84.10 Pulmonary fibrosis, unspecified; E66.9 Obesity, unspecified; E87.5 Hyperkalemia; I27.20 Pulmonary hypertension, unspecified; I95.9 Hypotension, unspecified; R13.10 Dysphagia, unspecified; E11.22 Type 2 diabetes mellitus with diabetic chronic kidney disease; M81.0 Age-related osteoporosis without current pathological fracture; Z88.0 Allergy status to penicillin; Z79.01 Long term (current) use of anticoagulants; Z88.2 Allergy status to sulfonamides; Z88.8 Allergy status to other drugs, medicaments and biological substances; Z79.52 Long term (current) use of systemic steroids; Z86.718 Personal history of other venous thrombosis and embolism; Z86.711 Personal history of pulmonary embolism; Z99.81 Dependence on supplemental oxygen; Z79.82 Long term (current) use of aspirin; Z79.899 Other long term (current) drug therapy; Z74.01 Bed confinement status
CPT/HCPCS: 10078; 10081; 10203; 10797; 27000

== ENCOUNTER 2020-01-21 18:52 | Emergency (ER) | payer OTHER ==
[~2020-01-21] VITALS: Ht 167.6 cm; Wt 113.4 kg
[~2020-01-21 18:52] MED LIST changes: +AAA-MED REC COMPLETE; +ALLOPURINOL 10100 M3 PO; +CALCIUM + D3 E1 EACH PO; +CARVEDILOL12.5 MG PO; +COLACE100 MG PO; +DAPSONE25 MG PO; +DELSYM COU30 MG/5 M1 PO; +DOXYCYCLINE 10100 MG PO; +DOXYCYCLINE HYC50 MG PO; +ELIQUIS5 MG PO; +HUMALOG100 UNIT/1 SUBQ; +HYDRALAZINE 2525 MG PO; +IPRAT-ALBUT 0.5-3 ML INH; +LEVEMIR100 UNIT/2 SUBQ; +LUMIGAN2.5 M1 OPHTHALMIC; +NYSTATIN100000 UNI SW&SWALLOW; +PACERONE 200 M200 M1 PO; +PREDNISONE 5 MG5 M1 PO; +PROAIR HFA8.5 GM INH; +PROTONIX40 M2 PO; +REFRESH DIGITA1 EACH OPHTHALMIC; +RHOPRESSA2.5 ML OPHTHALMIC; +SIMBRINZA 1%-0.28 ML OPHTHALMIC; +TOPROL XL50 MG PO; +TORSEMIDE20 MG PO; +[UNRECOGNIZED DRUG - OTHER] OPHTHALMIC
[2020-01-21 19:50] LABS: HEMATOCRIT 27.9 % (37.0-47.0); HEMOGLOBIN 8.6 gm/dL (12.0-15.0); MCH 33.4 pg (26.0-34.0); MCHC 30.7 g/dL (28.0-37.0); MCV 108.8 fL (80.0-100.0); PLATELET COUNT 138 thou/uL (150-400); RBC 2.56 mil/uL (4.20-5.00); RDW 16.4 % (10.5-14.5); WBC 9.1 thou/uL (4.0-11.0)
[2020-01-21 19:51] LABS: URINE BILIRUBIN NEGATIVE (Negative); URINE BLOOD 1+ (Negative); URINE CLARITY CLOUDY; URINE COLOR YELLOW; URINE GLUCOSE-RANDOM* NEGATIVE (Negative); URINE KETONES NEGATIVE (Negative); URINE LEUKOCYTES-REFLEX 3+ (Negative); URINE NITRITE-REFLEX NEGATIVE (Negative); URINE PROTEIN (DIPSTICK) NEGATIVE (Negative); URINE SPECIFIC GRAVITY 1.025 (1.005-1.035); URINE UROBILINOGEN 0.2 E.U./dl (0.2-1.0)
[2020-01-21 19:59] LABS: YEAST-REFLEX Present (None Seen)
[2020-01-21 20:00] LABS: CASTS None Seen /LPF (None Seen); CRYSTALS None Seen /LPF (None Seen); SQUAMOUS 0-3 Few /LPF (0-3); URINE RBC 3-10 Few /HPF (0-2)
[2020-01-21 20:08] LABS: ALBUMIN 2.4 g/dL (3.4-5.0); BUN 56 mg/dL (7-18); CALCIUM 8.3 mg/dL (8.5-10.1); CREATININE 1.7 mg/dL (0.6-1.0); GLUCOSE 118 mg/dL (74-106); MAGNESIUM 1.9 mg/dL (1.8-2.4); SGOT 26 U/L (15-37); SGPT 38 U/L (30-65); TOTAL BILIRUBIN < 0.1 mg/dL (0.2-1.0); TOTAL PROTEIN 5.2 g/dL (6.4-8.2); TROPONIN-I 0.09 ng/mL (<0.06)
[2020-01-21 20:09] LABS: SODIUM 146 mmol/L (136-145)
[2020-01-21 20:10] LABS: ANION GAP 0 mmol/L (7-16); CHLORIDE 109 mmol/L (98-107); CO2 37 mmol/L (21-32); POTASSIUM 5.4 mmol/L (3.5-5.1)
[2020-01-21 20:24] LABS: ABSOLUTE NEUTROPHILS 7.5 thou/uL (1.4-8.2); ANISOCYTOSIS 1+; MACROCYTES 1+
[2020-01-21 22:22] VITALS: BP 102/41
--- NOTE | 2020-01-24 07:32 | EKG ---
[facility] [place] [address] ELECTROCARDIOGRAM REPORT Name: JAMES RAI Room #: DEP [facility] [id number] Admission: 01/21/20 Attend Phys: Discharge: 01/21/20 Date of : 44 Report #: [id number] THIS REPORT FOR: cc: FLAVIO RICCI MD Physician not on staff Bimal Downey MD [facility] THIS REPORT FOR: //name// [facility] ED Test Date: 2020-01-21 Test Time: 20:27:33 Pat Name: JAMES RAI Department: Room: Gender: F [employer] Attendant: dominick : 1940 Requested By: Uvaldo Eagle Order Number: [id number] MD: Bimal Downey Measurements Intervals [place] Rate: 59 P: 49 NE: 149 QRS: -40 QRSD: 111 T: 4 QT: 448 QTc: 444 Interpretive Statements Sinus rhythm Abnormal R-wave progression, late transition Nonspecific intraventricular conduction delay Baseline wander in lead(s) V6 Compared to ECG 01/18/2020 09:59:46 Atrial premature complex(es) no longer present Electronically Signed On 01-24-2020 7:32:28 HOG SLAUGHTERER by Bimal Downey [email or web address] <ELECTRONICALLY SIGNED> By: Bimal Downey MD, [facility] 01/24/20731 26 26 Bimal Downey MD, FAC /EPI
== END 2020-01-21 22:23 | disposition home or self-care (01) ==
LOC: ER 18:52
PROVIDERS: Emergency Medicine
DX: I95.89 Other hypotension (principal); R60.1 Generalized edema; B88.8 Other specified infestations; E88.09 Other disorders of plasma-protein metabolism, not elsewhere classified; D53.9 Nutritional anemia, unspecified; N39.0 Urinary tract infection, site not specified; J96.10 Chronic respiratory failure, unspecified whether with hypoxia or hypercapnia; J44.9 Chronic obstructive pulmonary disease, unspecified; I13.0 Hypertensive heart and chronic kidney disease with heart failure and stage 1 through stage 4 chronic kidney disease, or unspecified chronic kidney disease; E11.22 Type 2 diabetes mellitus with diabetic chronic kidney disease; N18.9 Chronic kidney disease, unspecified; I50.9 Heart failure, unspecified; K21.9 Gastro-esophageal reflux disease without esophagitis; Z79.2 Long term (current) use of antibiotics; Z79.899 Other long term (current) drug therapy; Z88.0 Allergy status to penicillin; Z88.2 Allergy status to sulfonamides; Z88.8 Allergy status to other drugs, medicaments and biological substances